=== PATIENT | male | born 1945 | race Caucasian/White ===

== ENCOUNTER → 2016-10-27 | Outpatient (CLI) | payer OTHER ==
[~2016-10-27] MED LIST: ALL300 PO; HYDC25 PO; METR0.754 EX; MULT-164 PO; SIMV20TA2 PO; VERA120T15 PO
== END | disposition home or self-care (01) ==
LOC: C.LABBFT 12:18
PROVIDERS: ATTEND Urology
DX: Z12.5 Encounter for screening for malignant neoplasm of prostate (principal)

== ENCOUNTER → 2016-11-28 | Outpatient (CLI) | payer OTHER ==
[2016-11-28 12:32] LABS: BLOOD UREA NITROGEN 15 mg/dl (7-18); BUN/CREATININE RATIO 15.3 (10-20); CALCIUM 10.2 mg/dl (8.5-10.1); CARBON DIOXIDE 28 mmol/L (21-32); CHLORIDE 104 mmol/L (98-107); CREATININE 0.96 mg/dl (0.60-1.40); GLUCOSE 99 mg/dl (70-99); POTASSIUM 3.8 mmol/L (3.5-5.1); SODIUM 140 mmol/L (136-145); URIC ACID 4.8 mg/dl (2.6-7.2)
[2016-11-28 13:21] LABS: ESTIMATED AVERAGE GLUCOSE 123 mg/dl; HA1C FLAG Normal (Normal)
== END | disposition home or self-care (01) ==
LOC: C.LABBFT 07:36
PROVIDERS: ATTEND Internal Medicine
DX: M10.9 Gout, unspecified (principal); E11.9 Type 2 diabetes mellitus without complications

== ENCOUNTER → 2017-06-09 | Outpatient (CLI) | payer OTHER ==
[2017-06-09 12:38] LABS: BASO % 0.3 %; BASO ABS # 0.02 K/uL (0-0.2); COMPLETE YES; HEMATOCRIT 43.8 % (42-52); IG% 0.2 %; LYMPH % 37.4 %; LYMPH ABS # 2.38 K/uL (1.2-3.4); MEAN CELL VOLUME 94.6 fL (80-100); MEAN CORPUSCULAR HGB CONC 34.9 g/dl (32-36); MEAN PLATELET VOLUME 11.9 fL (7.4-10.4); MONO % 8.2 %; NEUT % 51.9 %; PLATELET COUNT 181 K/uL (130-400); RED BLOOD COUNT 4.63 M/uL (4.7-6.1); WHITE BLOOD COUNT 6.36 K/uL (4.8-10.8)
[2017-06-09 13:21] LABS: ALT/SGPT 39 U/L (12-78); AST/SGOT 26 U/L (15-37); BLOOD UREA NITROGEN 20 mg/dl (7-18); BUN/CREATININE RATIO 19.5 (10-20); CALCIUM 9.2 mg/dl (8.5-10.1); CARBON DIOXIDE 25 mmol/L (21-32); CHLORIDE 107 mmol/L (98-107); CREATININE 1.01 mg/dl (0.60-1.40); GLUCOSE 105 mg/dl (70-99); POTASSIUM 3.7 mmol/L (3.5-5.1); SODIUM 140 mmol/L (136-145)
[2017-06-09 13:22] LABS: RATIO 22.8 mcg/mg (0-30.0)
[2017-06-09 13:24] LABS: ALB/GLOB RATIO 1.3 (0.9-2); ALKALINE PHOSPHATASE 85 U/L (45-117); CHOLESTEROL 137 mg/dl (0-200); CHOLESTEROL/HDL RATIO 2.9; HDL CHOLESTEROL 47 mg/dl; LDL CHOLESTEROL CALCULATED 59 mg/dl; TRIGLYCERIDES 154 mg/dl (0-150); VERY LOW DENSITY LIPOPROT CALC 31 mg/dl
[2017-06-09 13:57] LABS: ESTIMATED AVERAGE GLUCOSE 123 mg/dl; HA1C FLAG Normal (Normal)
== END | disposition home or self-care (01) ==
LOC: C.LABBFT 07:43
PROVIDERS: ATTEND Internal Medicine
DX: E11.9 Type 2 diabetes mellitus without complications (principal); E78.00 Pure hypercholesterolemia, unspecified; I10 Essential (primary) hypertension

== ENCOUNTER → 2017-11-03 | Outpatient (CLI) | payer OTHER | END | disposition home or self-care (01) | LOC: C.LABBFT 13:04 | PROVIDERS: ATTEND Urology | DX: Z12.5 Encounter for screening for malignant neoplasm of prostate (principal) ==

== ENCOUNTER → 2017-11-11 | Outpatient (CLI) | payer OTHER | END | disposition home or self-care (01) | LOC: C.LABSPEC 17:07 | PROVIDERS: ATTEND Urology | DX: R30.0 Dysuria (principal) ==

== ENCOUNTER → 2017-12-22 | Outpatient (CLI) | payer OTHER ==
[2017-12-22 12:48] LABS: BLOOD UREA NITROGEN 23 mg/dl (7-18); CALCIUM 8.9 mg/dl (8.5-10.1); CARBON DIOXIDE 30 mmol/L (21-32); CREATININE 1.02 mg/dl (0.60-1.40); GLUCOSE 105 mg/dl (70-99); POTASSIUM 4.2 mmol/L (3.5-5.1); SODIUM 141 mmol/L (136-145); URIC ACID 4.5 mg/dl (2.6-7.2)
[2017-12-22 12:53] LABS: HEMOGLOBIN A1C 5.7 % (4.5-5.6)
== END | disposition home or self-care (01) ==
LOC: C.LABBFT 07:20
PROVIDERS: ATTEND Internal Medicine
DX: M10.9 Gout, unspecified (principal); I10 Essential (primary) hypertension; E11.9 Type 2 diabetes mellitus without complications

== ENCOUNTER 2023-11-13 14:59 | Observation (INO) ==
[2023-11-13 15:41] LABS: Basophils # (auto) 0.03 K/uL (0.00-0.20); Basophils % (auto) 0.4 %; Eosinophils # (auto) 0.06 K/uL (0.00-0.50); Eosinophils % (auto) 0.8 %; Hematocrit (blood only) 38.8 % (42.0-52.0); Hemoglobin 13.7 g/dl (14.0-18.0); Immature Granulocytes # (auto) 0.02 K/uL (0.01-0.20); Immature Granulocytes % (auto) 0.3 %; Lymphocytes # (auto) 1.98 K/uL (1.20-3.40); Lymphocytes % (auto) 26.8 %; Mean Corpuscular Hemoglobin 33.1 pg (25.0-34.0); Mean Corpuscular Hgb Conc 35.3 g/dL (32.0-36.0); Mean Corpuscular Volume 93.7 fL (80.0-100.0); Mean Platelet Volume 11.6 fL (9.4-12.4); Monocytes # (auto) 0.62 K/uL (0.11-0.59); Monocytes % (auto) 8.4 %; Neutrophils # (auto) 4.68 K/uL (1.40-6.50); Neutrophils % (auto) 63.3 %; Platelet Count 188 K/uL (130-400); RDW Coefficient of Variation 14.1 % (11.5-14.5); RDW Standard Deviation 48.3 fL (36.4-46.3); Red Blood Count 4.14 M/uL (4.70-6.10); White Blood Count 7.39 K/ul (4.8-10.8)
--- NOTE | 2023-11-13 15:51 | XRay Report ---
XR chest 1V not portable HISTORY: Chest pain, nonspecific COMPARISON: Chest 08/06/2011. FINDINGS: No pneumothorax. No pleural effusions. No new focal lung consolidations to suggest pneumoni a. No evidence for pulmonary edema. The heart is top normal in size. This remains unchanged. No acute fractures identified. Degenerative changes within the shoulders. A few small bibasilar linear densit ies favor subsegmental atelectasis or scarring. IMPRESSION: No acute process. ACT 112: Negative or not required by law. Electronically signed by: Roman Lane M.D. 11/13/2023 3:50 PM
[2023-11-13 15:57] LABS: Alanine Aminotransferase 26 U/L (7-52); Albumin Globulin Ratio 1.7 (0.9-2); Albumin Level 4.4 gm/dl (3.4-5.0); Alkaline Phosphatase 74 U/L (34-104); Anion Gap 8 (3-11); Aspartate Aminotransferase 29 U/L (13-39); BUN Creatinine Ratio 28.6 (10-20); Bilirubin,Total 0.9 mg/dl (0.2-1.0); Blood Urea Nitrogen 28 mg/dl (6-23); Calcium 10.2 mg/dl (8.6-10.3); Carbon Dioxide 27 mmol/L (21-32); Chloride 106 mmol/L (98-107); Est GFR (African American) 84.1 ml/min; Est GFR (Non-African American) 72.5 ml/min; Globulin 2.6 gm/dl (2.5-4.0); Glucose 84 mg/dl (70-99(Fasting)); Potassium 3.7 mmol/L (3.5-5.1); Sodium 141 mmol/L (136-145)
[2023-11-13 16:02] LABS: Troponin I High Sensitivity 13.2 pg/ml (0-20)
[2023-11-13 16:08] LABS: Partial Thromboplastin Ratio 0.9; Partial Thromboplastin Time 25 Seconds (21-31); Prothrombin Time 11.2 Seconds (9.0-12.0)
--- NOTE | 2023-11-13 18:39 | Emergency Department Note ---
Impression & Plan Premature atrial complexes, PVCs (premature ventricular contractions), NSVT (nonsustained ventricular tachycardia) ED Provider Note NAME: ATA JUAREZ AGE: 78 SEX: M : 1945 ARRIVES VIA: Walk-In INFORMANT: Patient ED PROVIDER(S): Bimal Porras MD CHIEF COMPLAINT: Possible new A-fib, referred. PLAN: Disposition: Admit MEDICAL DECISION MAKING: The patient is a pleasant 78-year-old gentleman with a past medical history of hypertension, hyperlipidemia, type 2 diabetes, nonalcoholic fatty liver disease, BPH, anxiety/depression who presents to the emergency department via walk-in accompanied by family referred by outpatient preop testing for concern for new onset atrial fibrillation on his EKG today. Patient also reports that he was referred to cardiology with appointment scheduled for next week after outpatient appointment suspected and irregular heart rhythm. Patient reports over the past couple of months feeling dizzy when he bends over but not in any of the context. Otherwise denies any palpitations, chest pain, shortness of breath. In particular he denies any chest pain with exertion. He denies any recent illness including fevers, chills, cough, congestion, GI/ symptoms. Of note, the patient did arrive to emergency department during time of high volume, acuity and prolonged emergency department waiting times. Critical pathways initiated from triage. On my evaluation the patient is well-appearing no acute distress, afebrile with stable vital signs. EKG does not show atrial fibrillation at this time. Chest x-ray is negative for acute cardiopulmonary process per my preliminary independent interpretation. WBC and platelets within normal limits. H/H approximately prior range values. Platelets within normal limits. Chemistry without metabolic acidosis. Electrolytes and LFTs unremarkable. High-sensitivity troponin 13.2, within normal limits. Of note, patient was monitored on telemetry and was noted to have intermittent PVCs and a single episode of 5 consecutive beats, technically nonsustained ventricular tachycardia however the patient was asymptomatic. Given the patient's ectopy with single episode of nonsustained ventricular tachycardia patient and family agree with plan for admission for further assessment. Case was discussed with Dr. Raymond, [facility] hospitalist, who will evaluate the patient for admission. Additionally, EKGs and case reviewed with [facility] cardiology on-call, Dr. Gamble. Appreciate consultation recommendations and agrees that patient's EKG in the emergency room today as well as his EKG on preop testing does not show atrial fibrillation rather premature beats. He will be available for inpatient team consultation. Admitting team was updated. Triage Nursing notes reviewed and agree them. Prior/external medical records reviewed Vital Signs: reviewed Differential diagnosis: Premature contractions, electrolyte abnormality, cardiac dysrhythmia, thyroid dysfunction, pulmonary embolism, infection, gastrointestinal, as well as other pathologies. ER treatment provided: See below. Diagnostics interpreted by me: ECG: Sinus rhythm with PACs, 65 bpm, nonspecific T wave abnormality, no overt ST elevation or depression, QTc 391, QRS 86. Cardiac Monitoring: An order for continuous cardiac monitoring was placed and demonstrated Sinus rhythm with PACs, 65 bpm, intermittent PVCs with single episode of 5 consecutive ventricular beats consistent with nonsustained V. tach vs aberrancy. Laboratory studies: See below Imaging studies: See below Consultation(s): Dr. Raymond, [facility] hospitalist. [facility] cardiology on-call, Dr. Gamble HPI: The patient is a pleasant 78-year-old gentleman with a past medical history of hypertension, hyperlipidemia, type 2 diabetes, nonalcoholic fatty liver disease, BPH, anxiety/depression who presents emergency department via walk-in accompanied by family referred by outpatient preop testing for concern for new onset atrial fibrillation on his EKG today. Patient also reports that he was referred to cardiology with appointment scheduled for next week after outpatient appointment suspected and irregular heart rhythm. Patient reports over the past couple of months feeling dizzy when he bends over but not in any of the context. Otherwise denies any palpitations, chest pain, shortness of breath. In particular he denies any chest pain with exertion. He denies any recent illness including fevers, chills, cough, congestion, GI/ symptoms. ROS: See above HPI for pertinent positives & negatives. A total of 10 systems reviewed and were otherwise negative. VITALS:See Below PHYSICAL EXAMINATION: GENERAL: Awake, alert, well-appearing, in no distress HENT: Normocephalic, atraumatic. Oropharynx with dry mucous membranes and otherwise unremarkable. EYES: Normal conjunctiva. Sclera non-icteric. NECK: Supple. No nuchal rigidity. FROM. No JVD. RESPIRATORY: Clear to auscultation. CARDIAC: Regular rate, normal rhythm. Extremities warm and well perfused. Pulses equal. ABDOMEN: Soft, non-distended. No tenderness to palpation. No rebound or guarding. No masses. MUSCULOSKELETAL: Chest examination reveals no tenderness. The back is symmetrical on inspection without obvious abnormality. There is no CVA tenderness to palpation. No joint edema. LOWER EXTREMITIES: Calves are equal size bilaterally and non-tender. No edema. No discoloration. NEURO: Normal sensorium. No sensory or motor deficits noted. SKIN: No rash or jaundice noted. Bimal Porras MD Past Med/Surg History Medical History [place] (hard of hearing) Chronic cough for past 12-13 yrs/testing done. Something sweet or hot will trigger it. No findings. Denies change to baseline. Osteoarthritis knees and bone spurs. History of kidney stones Apnea, sleep says when lying on back will stop breathing sometimes. No hx sleep study. Anxiety History of colon polyps History of COVID-19 04/28/23 > home test > temp of 100.0, fatigue, all resolved Fatty liver disease, nonalcoholic Prostate nodule hx many years ago ? / hx elevated psa/since then re tested and normal - no known or current problems. Diabetes type 2, controlled Rosacea Gout hx Hypertension controlled, stable per pt Hyperlipidemia Surgical History Hx of right cataract extraction History of left cataract surgery History of tonsillectomy and adenoidectomy History of esophagogastroduodenoscopy (EGD) History of colonoscopy History of tooth extraction Family History Grandmother Family history of diabetes mellitus Mother Family hx of colon cancer Colorectal cancer Brother Myocardial infarction Denies family history of Ovarian cancer Prostate cancer Coronary heart disease Breast cancer Social History Smoking Status: Never smoker Tobacco Type: Cigarettes Age Started Using Tobacco: 18; packs per day: 2; Cigarettes Per Day: QUIT 1972; Second Hand Exposure: No; Do You Dip or Chew Tobacco: No; Hx Alcohol Use: No Hx Substance Use: No Preferred Language: Arabic Communication Ability: Effective Visual Impairment: No Limitations Hearing Ability: Hard of Hearing Revenue Manager Required: No Beliefs That Will Affect Care: None marital status: Current Living Situation: Spouse current occupational status: retired current occupation: retired from [employer] Other Information That Helps Us Care for You: No Feels Safe at Home: Yes Safety Concerns: Feels Safe At This Time Childhood Exposure to Second-Hand Smoke: Yes Diet: regular caffeine: Yes Dental Care, Regularly: No Physical Activity Frequency: Does not Exercise Seatbelt Use: always Sunscreen Use: No Assistive Devices: Denture - Upper, Denture - Lower and Glasses Allergies Allergies Allergy/AdvReac Type Severity Reaction Status Date / Time lisinopril Allergy Unknown cough Verified 11/04/23 08:19 Home Meds Home Medications Medication Instructions Recorded Confirmed multivitamin 1 tab PO QAM 01/24/19 11/13/23 mecobalamin (vitamin B12) 1,000 1,000 mcg sublingual QAM 01/15/23 11/13/23 mcg disintegrating tablet,sublingual allopurinol 300 mg tablet 300 mg PO QAM 05/15/23 11/13/23 buspirone 5 mg tablet 5 mg PO BID 05/15/23 11/13/23 losartan 50 mg-hydrochlorothiazide 1 tab PO QAM 05/15/23 11/13/23 12.5 mg tablet rosuvastatin 10 mg tablet 10 mg PO HS 05/15/23 11/13/23 Previous Rx's Medication Instructions Recorded metformin 500 mg tablet,extended 500 mg PO BID #200 tabs 12/17/22 release 24hr (osmotic) verapamil 180 mg tablet,extended 180 mg PO QAM #100 tabs 01/08/23 release doxycycline hyclate 50 mg capsule 50 mg PO QAM #90 caps 10/06/23 Results & Data (ED) Vital Signs Vital Signs - 24 hr 11/13/23 15:04 11/13/23 17:39 11/13/23 17:40 Temperature 36.3 C L Temperature Source Temporal Artery Scan Pulse Rate 73 61 58 L Pulse Rate [Apical] Pulse Rate from SpO2 Sensor Respiratory Rate 20 17 Respiratory Effort / Characteristics Non-Labored Spontaneous Respiratory Depth Normal Blood Pressure 126/77 Blood Pressure [Right Arm] Blood Pressure Mean 93 Blood Pressure Mean [Right Arm] Pulse Oximetry 97 Oxygen Delivery Method Room Air Sepsis New/Unexplained Change in Mental Status No Sepsis Action Taken by Nursing No Action Required 11/13/23 18:00 11/13/23 18:00 11/13/23 18:30 Temperature Temperature Source Pulse Rate 62 Pulse Rate [Apical] Pulse Rate from SpO2 Sensor Respiratory Rate 18 Respiratory Effort / Characteristics Respiratory Depth Blood Pressure 112/69 132/81 Blood Pressure [Right Arm] Blood Pressure Mean 80 90 Blood Pressure Mean [Right Arm] Pulse Oximetry Oxygen Delivery Method Sepsis New/Unexplained Change in Mental Status Sepsis Action Taken by Nursing 11/13/23 18:30 11/13/23 19:31 11/13/23 19:31 Temperature Temperature Source Pulse Rate 63 Pulse Rate [Apical] Pulse Rate from SpO2 Sensor 82 Respiratory Rate 15 Respiratory Effort / Characteristics Respiratory Depth Blood Pressure 155/77 H Blood Pressure [Right Arm] Blood Pressure Mean 103 Blood Pressure Mean [Right Arm] Pulse Oximetry 95 Oxygen Delivery Method Sepsis New/Unexplained Change in Mental Status Sepsis Action Taken by Nursing 11/13/23 19:32 11/13/23 19:32 11/13/23 19:32 Temperature Temperature Source Pulse Rate Pulse Rate [Apical] 74 Pulse Rate from SpO2 Sensor Respiratory Rate 16 Respiratory Effort / Characteristics Respiratory Depth Blood Pressure Blood Pressure [Right Arm] 155/77 H Blood Pressure Mean Blood Pressure Mean [Right Arm] 103 Pulse Oximetry 97 Oxygen Delivery Method Room Air Room Air Room Air Sepsis New/Unexplained Change in Mental Status Sepsis Action Taken by Nursing 11/13/23 20:00 11/13/23 20:00 11/13/23 20:30 Temperature Temperature Source Pulse Rate 80 75 Pulse Rate [Apical] Pulse Rate from SpO2 Sensor Respiratory Rate 22 21 Respiratory Effort / Characteristics Respiratory Depth Blood Pressure 153/72 H Blood Pressure [Right Arm] Blood Pressure Mean 98 Blood Pressure Mean [Right Arm] Pulse Oximetry Oxygen Delivery Method Sepsis New/Unexplained Change in Mental Status Sepsis Action Taken by Nursing 11/13/23 20:30 Temperature Temperature Source Pulse Rate Pulse Rate [Apical] Pulse Rate from SpO2 Sensor Respiratory Rate Respiratory Effort / Characteristics Respiratory Depth Blood Pressure 156/84 H Blood Pressure [Right Arm] Blood Pressure Mean 118 Blood Pressure Mean [Right Arm] Pulse Oximetry Oxygen Delivery Method Sepsis New/Unexplained Change in Mental Status Sepsis Action Taken by Nursing Laboratory Data Attestation: I reviewed the patient's lab results. 11/13/23 15:20 11/13/23 15:20 Lab Results 11/13/23 Range/Units 15:20 WBC 7.39 (4.8-10.8) K/ul RBC 4.14 L (4.70-6.10) M/uL Hgb 13.7 L (14.0-18.0) g/dl Hct 38.8 L (42.0-52.0) % MCV 93.7 (80.0-100.0) fL MCH 33.1 (25.0-34.0) pg MCHC 35.3 (32.0-36.0) g/dL RDW Std Deviation 48.3 H (36.4-46.3) fL RDW Coeff of [place] 14.1 (11.5-14.5) % Plt Count 188 (130-400) K/uL MPV 11.6 (9.4-12.4) fL Immature Gran % (Auto) 0.3 % Neut % (Auto) 63.3 % Lymph % (Auto) 26.8 % [place] % (Auto) 8.4 % Eos % (Auto) 0.8 % Baso % (Auto) 0.4 % Neut # (Auto) 4.68 (1.40-6.50) K/uL Lymph # (Auto) 1.98 (1.20-3.40) K/uL [place] # (Auto) 0.62 H (0.11-0.59) K/uL Eos # (Auto) 0.06 (0.00-0.50) K/uL Baso # (Auto) 0.03 (0.00-0.20) K/uL Immature Gran # (Auto) 0.02 (0.01-0.20) K/uL PT 11.2 (9.0-12.0) Seconds INR 1.0 (0.9-1.1) APTT 25 (21-31) Seconds PTT Ratio 0.9 Sodium 141 (136-145) mmol/L Potassium 3.7 (3.5-5.1) mmol/L Chloride 106 (98-107) mmol/L Carbon Dioxide 27 (21-32) mmol/L Anion Gap 8 (3-11) BUN 28 H (6-23) mg/dl Creatinine 0.98 (0.6-1.4) mg/dl Est Cr Clr Drug Dosing Not Reportable Est GFR ( Amer) 84.1 ml/min Est GFR (Non-Af Amer) 72.5 ml/min BUN/Creatinine Ratio 28.6 H (10-20) Glucose 84 (70-99(Fasting)) mg/dl Calcium 10.2 (8.6-10.3) mg/dl Magnesium 1.7 (1.7-2.4) mg/dl Total Bilirubin 0.9 (0.2-1.0) mg/dl AST 29 (13-39) U/L ALT 26 (7-52) U/L Alkaline Phosphatase 74 (34-104) U/L Troponin I High Sens 13.2 (0-20) pg/ml Total Protein 7.0 (6.0-8.3) gm/dl Albumin 4.4 (3.4-5.0) gm/dl Globulin 2.6 (2.5-4.0) gm/dl Albumin/Globulin Ratio 1.7 (0.9-2) Administered Medications Buspirone HCl (Buspirone 5 Mg Tab) 5 mg PO BID LUIS MIGUEL Stop: 12/13/23 23:36 Last Admin: 11/14/23 00:44 Dose: 5 mg Documented By: FABRIZIO Enoxaparin Sodium (Enoxaparin Inj 40 Mg/0.4 Ml Syr) 40 mg SQ Q24H LUIS MIGUEL Stop: 12/13/23 20:59 Last Admin: 11/14/23 00:45 Dose: 40 mg Documented By: FABRIZIO Rosuvastatin Calcium (Rosuvastatin Calcium 10 Mg Tab) 10 mg PO HS LUIS MIGUEL Stop: 12/13/23 23:36 Last Admin: 11/14/23 00:44 Dose: 10 mg Documented By: FABRIZIO Discontinued Medications Potassium Chloride (K Benny / Wtr) 10 meq in 100 mls @ 100 mls/hr IV ONE ONE Stop: 11/13/23 21:35 Last Infusion: 11/13/23 23:01 Dose: Infused Documented By: Admin: 11/13/23 21:45 Dose: 100 mls/hr Documented By: CHAU Magnesium Sulfate/Dextrose (Magnesium Sulfate / D5w) 1 gm in 100 mls @ 50 mls/hr IV ONE ONE Stop: 11/14/23 00:11 Last Infusion: 11/14/23 01:28 Dose: Infused Documented By: Admin: 11/13/23 22:21 Dose: 50 mls/hr Documented By: CHAU Imaging Data Radiologist's Impression: Chest X-Ray 11/13/23 15:06 XR chest 1V not portable HISTORY: Chest pain, nonspecific COMPARISON: Chest 08/06/2011. FINDINGS: No pneumothorax. No pleural effusions. No new focal lung consolidations to suggest pneumonia. No evidence for pulmonary edema. The heart is top normal in size. This remains unchanged. No acute fractures identified. Degenerative changes within the shoulders. A few small bibasilar linear densities favor subsegmental atelectasis or scarring. IMPRESSION: No acute process. ACT 112: Negative or not required by law. Electronically signed by: Roman Lane M.D. 11/13/2023 3:50 PM Discharge Plan Visit Data Chief Complaint: Arrhythmia/Palpitations Stated Complaint: NEW ONSET AFIB ED Provider: Bimal Porras Discharge Problem: Premature atrial complexes, PVCs (premature ventricular contractions), NSVT (nonsustained ventricular tachycardia) Patient Disposition: Admitted As Inpatient Discharge Instructions Interventions: ED Discharge Assessment Last Done: 11/13/23 23:38
--- NOTE | 2023-11-13 20:52 | History & Physical Report ---
Date of Service November 13, 2023 Assessment & Plan (1) NSVT (nonsustained ventricular tachycardia): (2) PVCs (premature ventricular contractions): (3) Premature atrial complexes: (4) Depression with anxiety: (5) Enlarged prostate with lower urinary tract symptoms (LUTS): (6) Osteoarthritis of both knees: (7) Hypertension: (8) Hyperlipidemia: (9) Diabetes type 2, controlled: (10) Hypomagnesemia: (11) Hypokalemia: (12) History of atrial fibrillation: Plan PACs/PVCs/history of atrial fibrillation/hypertension/5 beat run NSVT- The patient will be admitted to telemetry for serial cardiac enzymes, serial EKG's, cardiac rhythm monitoring and a 2-D echocardiogram with Dopplers. Patient has been asymptomatic, and EKGs reportedly in outpatient setting were noted to have atrial fibrillation, and patient has a pending outpatient appointment with [facility] cardiology on 11/23/2023 Optimize potassium and magnesium Continue verapamil extended release 180 mg every morning Hold losartan/HCTZ for now, until electrolytes optimized Consult to cardiology Dr. Conte Electrolyte disturbances- Relative hypokalemia of 3.7, to give KCl 10 mEq IV rider x 1 Hypomagnesemia of 1.7, to give mag sulfate 1 g IV x 1 Repeat laboratories in the a.m. Diabetes mellitus- Hold metformin Place on Accu-Cheks with NovoLog SSI Anxiety- Continue buspirone 5 mg p.o. twice daily History of Present Illness Chief Complaint: The patient presents to the emergency department as a referral from preoperative evaluation by anesthesiology, due to concerns regarding atrial fibrillation noted on EKG there, and reportedly at presurgical [facility] Ortho visit. The patient was noted to have a preoperative cardiology evaluation appointment with [facility] cardiology on 11/23/2023 Primary Care Provider: Taras Rivera MD The patient is an 78-year-old male with a past medical history including microalbuminuria, depression with anxiety, allergic rhinitis, BPH with LUTS, chronic prostatitis, osteoarthritis of knees bilaterally, hyperlipidemia, hypertension, gout, diabetes mellitus type 2 and NAFLD. He reports that he has been undergoing routine preoperative assessment for left total knee arthroplasty to be done in the near future, when he was found to have atrial fibrillation at [facility] Ortho visit, and was referred to [facility] cardiology for appointment on 11/23/2023. Patient had been seen by anesthesiology on 11/12, was found to be in atrial fibrillation at that time, and was referred to the ED for further assessment. Patient denies any chest pain, shortness of breath, dyspnea on exertion, palpitations, lightheadedness or dizziness. Allergies Allergy/AdvReac Type Severity Reaction Status Date / Time lisinopril Allergy Unknown cough Verified 11/04/23 08:19 Home Medications Medication Instructions Recorded Confirmed Type multivitamin 1 tab PO QAM 01/24/19 11/13/23 History metformin 500 mg tablet,extended 500 mg PO BID #200 tabs 12/17/22 11/13/23 Rx release 24hr (osmotic) verapamil 180 mg tablet,extended 180 mg PO QAM #100 tabs 01/08/23 11/13/23 Rx release mecobalamin (vitamin B12) 1,000 1,000 mcg sublingual QAM 01/15/23 11/13/23 History mcg disintegrating tablet,sublingual allopurinol 300 mg tablet 300 mg PO QAM 05/15/23 11/13/23 History buspirone 5 mg tablet 5 mg PO BID 05/15/23 11/13/23 History losartan 50 mg-hydrochlorothiazide 1 tab PO QAM 05/15/23 11/13/23 History 12.5 mg tablet rosuvastatin 10 mg tablet 10 mg PO HS 05/15/23 11/13/23 History doxycycline hyclate 50 mg capsule 50 mg PO QAM #90 caps 10/06/23 11/13/23 Rx Past Med/Surg History Medical History (Updated 11/14/23 @ 03:32 by Paulo Raymond MD) History of atrial fibrillation Osteoarthritis of both knees [place] (hard of hearing) Chronic cough for past 12-13 yrs/testing done. Something sweet or hot will trigger it. No findings. Denies change to baseline. Osteoarthritis knees and bone spurs. History of kidney stones Apnea, sleep says when lying on back will stop breathing sometimes. No hx sleep study. Anxiety History of colon polyps History of COVID-19 04/28/23 > home test > temp of 100.0, fatigue, all resolved Fatty liver disease, nonalcoholic Prostate nodule hx many years ago ? / hx elevated psa/since then re tested and normal - no known or current problems. Diabetes type 2, controlled Rosacea Gout hx Hypertension controlled, stable per pt Hyperlipidemia Surgical History Hx of right cataract extraction History of left cataract surgery History of tonsillectomy and adenoidectomy History of esophagogastroduodenoscopy (EGD) History of colonoscopy History of tooth extraction Family History Grandmother Family history of diabetes mellitus Mother Family hx of colon cancer Colorectal cancer Brother Myocardial infarction Denies family history of Ovarian cancer Prostate cancer Coronary heart disease Breast cancer Social History (Updated 04/21/23 @ 10:19 by Nicole Waller LPN) Smoking Status: Never smoker Tobacco Type: Cigarettes Age Started Using Tobacco: 18; packs per day: 2; Cigarettes Per Day: QUIT 1972; Second Hand Exposure: No; Do You Dip or Chew Tobacco: No; Hx Alcohol Use: No Hx Substance Use: No Preferred Language: [place] Communication Ability: Effective Visual Impairment: No Limitations Hearing Ability: Hard of Hearing 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 Beliefs That Will Affect Care: None marital status: Current Living Situation: Spouse current occupational status: retired current occupation: retired from [employer] Other Information That Helps Us Care for You: No Feels Safe at Home: Yes Safety Concerns: Feels Safe At This Time Childhood Exposure to Second-Hand Smoke: Yes Diet: regular caffeine: Yes Dental Care, Regularly: No Physical Activity Frequency: Does not Exercise Seatbelt Use: always Sunscreen Use: No Assistive Devices: Denture - Upper, Denture - Lower and Glasses Review of Systems Review of Systems: The patient denies chest pain, palpitations, shortness of breath, dyspnea on exertion, cough, lower extremity swelling, sore throat, fevers, chills, sweats, weight change, fatigue, nausea, vomiting, diarrhea , constipation, abdominal pain, pelvic pain, blood in urine or stool, dysuria, urinary frequency or urgency, lightheadedness, dizziness, headache, memory loss, loss of consciousness, rash, abnormal bruising or bleeding, imbalance, focal or generalized weakness, numbness or tingling in arms or legs, generalized arthralgias or myalgias, back or neck pain, or night sweats. The review of systems is otherwise negative other than for that already noted above, and at least 10 systems have been reviewed. Physical Exam Physical Exam: The patient is awake, alert and oriented 3, well developed and well nourished, normocephalic and atraumatic, lying in bed and in no acute distress. HEENT--PERRL, EOMI, mucous membranes and oropharynx normal. Neck--supple. No JVD. No bruits. Thyroid normal, trachea midline, no adenopathy. Heart--variable rate and rhythm, with frequent PACs/PVCs versus A-fib. No murmurs, rubs or gallops. Lungs--clear bilaterally, no respiratory distress, no accessory muscle use. Abdomen--normal bowel sounds and soft. Nontender. Nondistended, no hernias or masses, no organomegaly. Extremities--No edema. Dermatologic--normal skin turgor, normal color, no abnormal lymph nodes, no rash. Neurologic--cranial nerves II through XII grossly intact. Rheumatologic--limited lower extremity exam due to knee pain Psychiatric--normal affect. Results & Data Results & Data Vital Signs (Past 12 Hours) Vital Signs Temp Pulse Pulse Resp BP BP Pulse Ox 11/13/23 19:32 11/13/23 19:32 74 16 155/77 H 97 11/13/23 19:32 11/13/23 17:40 58 L 11/13/23 15:04 36.3 C L 73 20 126/77 97 O2 Del Method 11/13/23 19:32 Room Air 11/13/23 19:32 Room Air 11/13/23 19:32 Room Air 11/13/23 17:40 11/13/23 15:04 Room Air Laboratory Results Laboratory Results WBC 7.39 K/ul (4.8-10.8) 11/13/23 15:20 RBC 4.14 M/uL (4.70-6.10) L 11/13/23 15:20 Hgb 13.7 g/dl (14.0-18.0) L 11/13/23 15:20 Hct 38.8 % (42.0-52.0) L 11/13/23 15:20 MCV 93.7 fL (80.0-100.0) 11/13/23 15:20 MCH 33.1 pg (25.0-34.0) 11/13/23 15:20 MCHC 35.3 g/dL (32.0-36.0) 11/13/23 15:20 RDW Std Deviation 48.3 fL (36.4-46.3) H 11/13/23 15:20 RDW Coeff of [place] 14.1 % (11.5-14.5) 11/13/23 15:20 Plt Count 188 K/uL (130-400) 11/13/23 15:20 MPV 11.6 fL (9.4-12.4) 11/13/23 15:20 Immature Gran % (Auto) 0.3 % 11/13/23 15:20 Neut % (Auto) 63.3 % 11/13/23 15:20 Lymph % (Auto) 26.8 % 11/13/23 15:20 [place] % (Auto) 8.4 % 11/13/23 15:20 Eos % (Auto) 0.8 % 11/13/23 15:20 Baso % (Auto) 0.4 % 11/13/23 15:20 Neut # (Auto) 4.68 K/uL (1.40-6.50) 11/13/23 15:20 Lymph # (Auto) 1.98 K/uL (1.20-3.40) 11/13/23 15:20 [place] # (Auto) 0.62 K/uL (0.11-0.59) H 11/13/23 15:20 Eos # (Auto) 0.06 K/uL (0.00-0.50) 11/13/23 15:20 Baso # (Auto) 0.03 K/uL (0.00-0.20) 11/13/23 15:20 Immature Gran # (Auto) 0.02 K/uL (0.01-0.20) 11/13/23 15:20 PT 11.2 Seconds (9.0-12.0) 11/13/23 15:20 INR 1.0 (0.9-1.1) 11/13/23 15:20 APTT 25 Seconds (21-31) 11/13/23 15:20 PTT Ratio 0.9 11/13/23 15:20 Sodium 141 mmol/L (136-145) 11/13/23 15:20 Potassium 3.7 mmol/L (3.5-5.1) 11/13/23 15:20 Chloride 106 mmol/L (98-107) 11/13/23 15:20 Carbon Dioxide 27 mmol/L (21-32) 11/13/23 15:20 Anion Gap 8 (3-11) 11/13/23 15:20 BUN 28 mg/dl (6-23) H 11/13/23 15:20 Creatinine 0.98 mg/dl (0.6-1.4) 11/13/23 15:20 Est Cr Clr Drug Dosing Not Reportable 11/13/23 15:20 Est GFR ( Amer) 84.1 ml/min 11/13/23 15:20 Est GFR (Non-Af Amer) 72.5 ml/min 11/13/23 15:20 BUN/Creatinine Ratio 28.6 (10-20) H 11/13/23 15:20 Glucose 84 mg/dl (70-99(Fasting)) 11/13/23 15:20 Calcium 10.2 mg/dl (8.6-10.3) 11/13/23 15:20 Magnesium 1.7 mg/dl (1.7-2.4) 11/13/23 15:20 Total Bilirubin 0.9 mg/dl (0.2-1.0) 11/13/23 15:20 AST 29 U/L (13-39) 11/13/23 15:20 ALT 26 U/L (7-52) 11/13/23 15:20 Alkaline Phosphatase 74 U/L (34-104) 11/13/23 15:20 Troponin I High Sens 13.2 pg/ml (0-20) 11/13/23 15:20 Total Protein 7.0 gm/dl (6.0-8.3) 11/13/23 15:20 Albumin 4.4 gm/dl (3.4-5.0) 11/13/23 15:20 Globulin 2.6 gm/dl (2.5-4.0) 11/13/23 15:20 Albumin/Globulin Ratio 1.7 (0.9-2) 11/13/23 15:20 Impressions Chest X-Ray 11/13/23 15:06 XR chest 1V not portable HISTORY: Chest pain, nonspecific COMPARISON: Chest 08/06/2011. FINDINGS: No pneumothorax. No pleural effusions. No new focal lung consolidations to suggest pneumonia. No evidence for pulmonary edema. The heart is top normal in size. This remains unchanged. No acute fractures identified. Degenerative changes within the shoulders. A few small bibasilar linear densities favor subsegmental atelectasis or scarring. IMPRESSION: No acute process. ACT 112: Negative or not required by law. Electronically signed by: Roman Lane M.D. 11/13/2023 3:50 PM Code Status & VTE Plan Code Status Full code VTE Prophylaxis Plan VTE Prophylaxis will be ordered: Yes PG Care Time/CCT Total # of Minutes Spent Total Time Spent with Patient: Total time spent is greater than 50% in coordination of care (as documented) at patient's floor/unit and/or counseling patient: Coding Level of Care Code 74088 INT INP/OBS CARE 3/75MIN Diagnoses NSVT (nonsustained ventricular tachycardia) I47.29 PVCs (premature ventricular contractions) I49.3 Premature atrial complexes I49.1 Depression with anxiety F41.8 Enlarged prostate with lower urinary tract symptoms (LUTS) N40.1 Osteoarthritis of both knees M17.0 Hypertension I10 Hyperlipidemia E78.5 Diabetes type 2, controlled E11.9 Hypomagnesemia E83.42 Hypokalemia E87.6 History of atrial fibrillation Z86.79
[2023-11-13 21:11] LABS: Magnesium 1.7 mg/dl (1.7-2.4)
[2023-11-13] MEDS: POTASSIUM CHLORIDE / WTR 10 MEQ/100 ML PLCT IV ONE (21:45)
[2023-11-13] MEDS: MAGNESIUM SULFATE / D5W 1 GM/100 ML BAG IV ONE (22:21)
[2023-11-13] MEDS ORDERED: ONDANSETRON INJ 2 MG/ML 2 ML VIAL IV PRN (23:37)
[2023-11-13] MEDS ORDERED: ACETAMINOPHEN 325 MG TAB PO PRN (23:37)
[2023-11-14] MEDS: busPIRone 5 MG TAB PO SCH (00:44)
[2023-11-14] MEDS: ROSUVASTATIN CALCIUM 10 MG TAB PO SCH (00:44)
[2023-11-14] MEDS: ENOXAPARIN INJ 40 MG/0.4 ML SYR SQ SCH (00:45)
[2023-11-14 03:31] LABS: Basophils # (auto) 0.03 K/uL (0.00-0.20); Basophils % (auto) 0.4 %; Eosinophils # (auto) 0.16 K/uL (0.00-0.50); Eosinophils % (auto) 2.2 %; Hematocrit (blood only) 36.5 % (42.0-52.0); Hemoglobin 12.2 g/dl (14.0-18.0); Immature Granulocytes # (auto) 0.01 K/uL (0.01-0.20); Immature Granulocytes % (auto) 0.1 %; Lymphocytes # (auto) 2.49 K/uL (1.20-3.40); Lymphocytes % (auto) 33.7 %; Mean Corpuscular Hemoglobin 32.1 pg (25.0-34.0); Mean Corpuscular Hgb Conc 33.4 g/dL (32.0-36.0); Mean Corpuscular Volume 96.1 fL (80.0-100.0); Mean Platelet Volume 11.5 fL (9.4-12.4); Monocytes # (auto) 0.83 K/uL (0.11-0.59); Monocytes % (auto) 11.2 %; Neutrophils # (auto) 3.87 K/uL (1.40-6.50); Neutrophils % (auto) 52.4 %; Platelet Count 165 K/uL (130-400); RDW Coefficient of Variation 14.2 % (11.5-14.5); RDW Standard Deviation 49.8 fL (36.4-46.3); White Blood Count 7.39 K/ul (4.8-10.8)
[2023-11-14 03:38] LABS: Albumin Level 3.9 gm/dl (3.4-5.0); BUN Creatinine Ratio 25.5 (10-20); Calcium 9.5 mg/dl (8.6-10.3); Est GFR (African American) 76.4 ml/min; Magnesium 1.9 mg/dl (1.7-2.4); Potassium 3.9 mmol/L (3.5-5.1)
[2023-11-14] MEDS: VERAPAMIL HCL 180 MG TABCR PO SCH (08:23)
[2023-11-14] MEDS: DOXYCYCLINE HYCLATE 50 MG CAP PO SCH (08:23)
[2023-11-14] MEDS: allopurinoL 300 MG TAB PO SCH (08:23)
[2023-11-14] MEDS: MULTIVITAMIN TAB PO SCH (08:23)
[2023-11-14] MEDS: CYANOCOBALAMIN (B-12) 500 MCG TABLET PO SCH (08:23)
[2023-11-14] MEDS ORDERED: LOSARTAN/HCTZ 50/12.5MG TAB PO SCH (09:00)
--- NOTE | 2023-11-14 09:54 | Hospitalist Progress Note ---
Date of Service November 14, 2023 Assessment & Plan (1) NSVT (nonsustained ventricular tachycardia): (2) PVCs (premature ventricular contractions): (3) Premature atrial complexes: (4) Depression with anxiety: (5) Enlarged prostate with lower urinary tract symptoms (LUTS): (6) Osteoarthritis of both knees: (7) Hypertension: (8) Hyperlipidemia: (9) Diabetes type 2, controlled: (10) Hypomagnesemia: (11) Hypokalemia: (12) History of atrial fibrillation: Plan PACs/PVCs/history of atrial fibrillation/hypertension/5 beat run NSVT- Patient has been asymptomatic, and EKGs reportedly in outpatient setting were noted to have atrial fibrillation, and patient has a pending outpatient appointment with [facility] cardiology on 11/23/2023 2D echo have been requested, result pending Continue verapamil extended release 180 mg every morning Hold losartan/HCTZ for now, until electrolytes optimized Consult to cardiology Dr. Conte Electrolyte disturbances- Hypokalemia: Potassium repleted Hypomagnesemia: Magnesium repleted Repeat laboratories in the a.m. Diabetes mellitus- Hold metformin Place on Accu-Cheks with NovoLog SSI Anxiety- Continue buspirone 5 mg p.o. twice daily Admission and Anticipated Discharge Date Admission Date: November 13, 2023 Subjective Patient seen and examined today, denies palpitations or chest pain Review of Systems Review of Systems: All systems reviewed are negative, apart from the ones contained in the history. Physical Exam Physical Exam: The patient is awake, alert and oriented 3, well developed and well nourished, normocephalic and atraumatic, lying in bed and in no acute distress. HEENT--PERRL, EOMI, mucous membranes and oropharynx mildly dry Neck--supple. No JVD. No bruits. Thyroid normal, trachea midline, no maria dolores nopathy. Heart--normal S1 and S2. No murmurs, rubs or gallops. Lungs--clear bilaterally, no respiratory distress, no accessory muscle use. Abdomen--normal bowel sounds and soft. Extremities--no cyanosis or clubbing. No edema. Dermatologic--normal skin turgor, normal color, no abnormal lymph nodes, no rash. Neurologic--cranial nerves II through XII grossly intact. Rheumatologic--normal range of motion. Psychiatric--normal affect. Results & Data Results & Data Vital Signs (Past 12 Hours) Vital Signs Pulse Resp BP Pulse Ox 11/14/23 07:22 65 11/14/23 05:00 59 L 14 134/84 97 11/14/23 01:30 62 20 123/78 93 11/13/23 23:30 63 16 116/69 95 11/13/23 22:00 79 PG Care Time/CCT Total # of Minutes Spent Total Time Spent with Patient: Total time spent is greater than 50% in coordination of care (as documented) at patient's floor/unit and/or counseling patient: Coding Level of Care Code 31840 SUB INP/OBS CARE 2/35MIN Diagnoses NSVT (nonsustained ventricular tachycardia) I47.29 PVCs (premature ventricular contractions) I49.3 Premature atrial complexes I49.1 Depression with anxiety F41.8 Enlarged prostate with lower urinary tract symptoms (LUTS) N40.1 Osteoarthritis of both knees M17.0 Hypertension I10 Hyperlipidemia E78.5 Diabetes type 2, controlled E11.9 Hypomagnesemia E83.42 Hypokalemia E87.6 History of atrial fibrillation Z86.79 Time Spent (min) 35
--- NOTE | 2023-11-14 10:34 | Cardiology Consultation ---
Date of Consultation November 14, 2023 Assessment & Plan (1) Irregular cardiac rhythm: (2) NSVT (nonsustained ventricular tachycardia): Plan 1. Irregular rhythm: On presentation his exam and electrocardiogram does show an irregular rhythm however it is due to premature atrial and premature ventricular beats not to atrial fibrillation. As far as I know there is no evidence that he has atrial fibrillation. He is irregular rate on exam could have been felt to be atrial fibrillation since and electrocardiogram was not done. Unless we identify atrial fibrillation I would not pursue further treatment or evaluation of this particular rhythm. 2. Nonsustained ventricular tachycardia: We do need an echocardiogram to look the left ventricular function, in the absence of left ventricular dysfunction NSVT is generally not dangerous although does sometimes need to be treated. 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 It is not a typical RVOT origin in this one example. If his left ventricular function is normal I would not alter his current treatment, he is on verapamil which he thinks is for blood pressure but perhaps it was used because of his arrhythmia as well. If we feel we need to treat his arrhythmia (in the setting of normal left ventricular function) we could consider antiarrhythmic therapy. If his left ventricular function is reduced we may have to evaluate him further for that. If his echocardiogram shows normal left ventricular function I would recommend discharging him on his current medical regimen. History of Present Illness Reason for Consultation: Irregular heart rate, NSVT Attending Physician: Danyelle Olivo MD History of Present Illness This is an 78-year-old male with a history of hypertension, hyperlipidemia, diabetes and liver disease who presented to his outpatient preoperative testing and was referred to the emergency room for possible atrial fibrillation. It sounds as though this was done based on auscultation of his heart, there is no outpatient electrocardiographic recording and the patient tells me he did not have one until he came into the emergency room. He reports having rare episodes of dizziness but noted to be postural not at other times. In the emergency room he was not in atrial fibrillation, however he was noted to have PVCs and nonsustained ventricular tachycardia. These were asymptomatic. He was therefore admitted for evaluation. Of note he is on verapamil for hypertension he tells me. This has been continued. In the emergency room his electrocardiogram showed sinus rhythm with premature atrial and premature ventricular beats which may explain the irregularity thought to be atrial fibrillation on exam, although I do not have an outpatient recent electrocardiogram. Laboratory studies here were generally unremarkable and a chest x-ray did not show any significant abnormality. An echocardiogram was done and is pending. As an outpatient he is on verapamil and losartan for hypertension and rosuvastatin for hypercholesterolemia. I discussed his symptoms with him with his family present. Apparently he has been feeling very well, this observation was for routine preoperative evaluation and he has not had difficulty with exertion, exertional chest discomfort or any hemodynamic symptoms other than the occasional lightheadedness which sounds orthostatic. He has never had presyncope or syncope. Allergies Allergy/AdvReac Type Severity Reaction Status Date / Time lisinopril Allergy Unknown cough Verified 11/04/23 08:19 Home Medications Medication Instructions Recorded Confirmed Type multivitamin 1 tab PO QAM 01/24/19 11/13/23 History metformin 500 mg tablet,extended 500 mg PO BID #200 tabs 12/17/22 11/13/23 Rx release 24hr (osmotic) verapamil 180 mg tablet,extended 180 mg PO QAM #100 tabs 01/08/23 11/13/23 Rx release mecobalamin (vitamin B12) 1,000 1,000 mcg sublingual QAM 01/15/23 11/13/23 History mcg disintegrating tablet,sublingual allopurinol 300 mg tablet 300 mg PO QAM 05/15/23 11/13/23 History buspirone 5 mg tablet 5 mg PO BID 05/15/23 11/13/23 History losartan 50 mg-hydrochlorothiazide 1 tab PO QAM 05/15/23 11/13/23 History 12.5 mg tablet rosuvastatin 10 mg tablet 10 mg PO HS 05/15/23 11/13/23 History doxycycline hyclate 50 mg capsule 50 mg PO QAM #90 caps 10/06/23 11/13/23 Rx Patient History Medical History (Updated 11/14/23 @ 10:33 by Sd Conte MD) History of atrial fibrillation Osteoarthritis of both knees [place] (hard of hearing) Chronic cough for past 12-13 yrs/testing done. Something sweet or hot will trigger it. No findings. Denies change to baseline. Osteoarthritis knees and bone spurs. History of kidney stones Apnea, sleep says when lying on back will stop breathing sometimes. No hx sleep study. Anxiety History of colon polyps History of COVID-19 04/28/23 > home test > temp of 100.0, fatigue, all resolved Fatty liver disease, nonalcoholic Prostate nodule hx many years ago ? / hx elevated psa/since then re tested and normal - no known or current problems. Diabetes type 2, controlled Rosacea Gout hx Hypertension controlled, stable per pt Hyperlipidemia Surgical History Hx of right cataract extraction History of left cataract surgery History of tonsillectomy and adenoidectomy History of esophagogastroduodenoscopy (EGD) History of colonoscopy History of tooth extraction Family History Grandmother Family history of diabetes mellitus Mother Family hx of colon cancer Colorectal cancer Brother Myocardial infarction Denies family history of Ovarian cancer Prostate cancer Coronary heart disease Breast cancer Social History Smoking Status: Never smoker Tobacco Type: Cigarettes Age Started Using Tobacco: 18; packs per day: 2; Cigarettes Per Day: QUIT 1972; Second Hand Exposure: No; Do You Dip or Chew Tobacco: No; Hx Alcohol Use: No Hx Substance Use: No Preferred Language: Kyrgyz Communication Ability: Effective Visual Impairment: No Limitations Hearing Ability: Hard of Hearing Digital Manager Required: No Beliefs That Will Affect Care: None marital status: Current Living Situation: Spouse current occupational status: retired current occupation: retired from [employer] Other Information That Helps Us Care for You: No Feels Safe at Home: Yes Safety Concerns: Feels Safe At This Time Childhood Exposure to Second-Hand Smoke: Yes Diet: regular caffeine: Yes Dental Care, Regularly: No Physical Activity Frequency: Does not Exercise Seatbelt Use: always Sunscreen Use: No Assistive Devices: Denture - Upper, Denture - Lower and Glasses Review of Systems Review of Systems: All systems reviewed & are unremarkable except as noted in HPI & below Physical Exam Physical Exam: Constitutional: Alert, cooperative and in no distress. HEENT: Unremarkable Neck: No jugular venous distention, carotid pulses are irregular but otherwise normal and equal bilaterally without bruits. Pulmonary: Clear to auscultation bilaterally. Cardiac: Irregular rhythm with no murmur, gallop or rub. Abdomen: Soft, nontender with normal bowel sounds. Extremities: No edema. Distal pulses intact. Neurologic: No focal findings. Gait is steady. Skin: No rash, ecchymoses or petechiae. Results & Data Vital Signs (Past 12 Hours) Vital Signs Temp Pulse Pulse Resp BP BP Pulse Ox 11/14/23 10:16 36.7 C 70 17 115/66 99 11/14/23 07:22 65 11/14/23 05:00 59 L 14 134/84 97 11/14/23 01:30 62 20 123/78 93 11/13/23 23:30 63 16 116/69 95 O2 Del Method 11/14/23 10:16 Room Air 11/14/23 07:22 11/14/23 05:00 11/14/23 01:30 11/13/23 23:30 Laboratory Results Cardiac Enzymes 11/13/23 Range/Units 15:20 AST 29 (13-39) U/L Troponin I High Sens 13.2 (0-20) pg/ml Coagulation 11/13/23 Range/Units 15:20 PT 11.2 (9.0-12.0) Seconds APTT 25 (21-31) Seconds CBC 11/13/23 11/14/23 Range/Units 15:20 03:06 WBC 7.39 7.39 (4.8-10.8) K/ul RBC 4.14 L 3.80 L (4.70-6.10) M/uL Hgb 13.7 L 12.2 L (14.0-18.0) g/dl Hct 38.8 L 36.5 L (42.0-52.0) % Plt Count 188 165 (130-400) K/uL Neut # (Auto) 4.68 3.87 (1.40-6.50) K/uL Lymph # (Auto) 1.98 2.49 (1.20-3.40) K/uL [place] # (Auto) 0.62 H 0.83 H (0.11-0.59) K/uL Eos # (Auto) 0.06 0.16 (0.00-0.50) K/uL Baso # (Auto) 0.03 0.03 (0.00-0.20) K/uL Comprehensive Metabolic Panel 11/13/23 11/14/23 Range/Units 15:20 03:06 Sodium 141 139 (136-145) mmol/L Potassium 3.7 3.9 (3.5-5.1) mmol/L Chloride 106 106 (98-107) mmol/L Carbon Dioxide 27 27 (21-32) mmol/L BUN 28 H 27 H (6-23) mg/dl Creatinine 0.98 1.06 (0.6-1.4) mg/dl Glucose 84 121 H (70-99(Fasting)) mg/dl Calcium 10.2 9.5 (8.6-10.3) mg/dl AST 29 (13-39) U/L ALT 26 (7-52) U/L Alkaline Phosphatase 74 (34-104) U/L Total Protein 7.0 (6.0-8.3) gm/dl Albumin 4.4 3.9 (3.4-5.0) gm/dl Intake and Output 11/13/23 11/14/23 11/14/23 22:59 06:59 14:59 Intake Total 200 / 200 120 / 120 Balance 200 / 200 120 / 120 Intake: IV 200 / 200 Magnesium Sulfate / D5w 1 gm In 100 / 100 100 ml @ 50 mls/hr IV ONE ONE Rx#:[id number] Potassium Chloride / Wtr 10 meq 100 / 100 In 100 ml @ 100 mls/hr IV ONE ONE Rx#:[id number] Oral 120 / 120 Other: # Unmeasured Voids 1 Weight 75 kg 75 kg Weight Measurement Method Built in Bedscale Chair Scale Diagnostic Findings Telemetry: Irregular rhythm which is sinus rhythm with frequent premature atrial beats and less frequent premature ventricular beats. No atrial fibrillation identified. PG Care Time/CCT Total # of Minutes Spent Total Time Spent with Patient: Total time spent is greater than 50% in coordination of care (as documented) at patient's floor/unit and/or counseling patient: Coding Level of Care Code 11939 INT INP/OBS CARE 3/75MIN Diagnoses Irregular cardiac rhythm I49.9 NSVT (nonsustained ventricular tachycardia) I47.29
--- NOTE | 2023-11-14 15:04 | XCELERA ---
[id number]
--- NOTE | 2023-11-14 15:44 | Discharge Summary ---
Date of Service November 14, 2023 Admission HPI Per Admitting Provider The patient is an 78-year-old male with a past medical history including microalbuminuria, depression with anxiety, allergic rhinitis, BPH with LUTS, chronic prostatitis, osteoarthritis of knees bilaterally, hyperlipidemia, hypertension, gout, diabetes mellitus type 2 and NAFLD. He reports that he has been undergoing routine preoperative assessment for left total knee arthroplasty to be done in the near future, when he was found to have atrial fibrillation at [facility] Ortho visit, and was referred to [facility] cardiology for appointment on 11/23/2023. Patient had been seen by anesthesiology on 11/12, was found to be in atrial fibrillation at that time, and was referred to the ED for further assessment. Patient denies any chest pain, shortness of breath, dyspnea on exertion, palpitations, lightheadedness or dizziness. Principal Diagnosis PVCs, PACs Discharge Exam The patient is awake, alert and oriented 3, well developed and well nourished, normocephalic and atraumatic, lying in bed and in no acute distress. HEENT--PERRL, EOMI, mucous membranes and oropharynx mildly dry Neck--supple. No JVD. No bruits. Thyroid normal, trachea midline, no adenopathy. Heart--normal S1 and S2. No murmurs, rubs or gallops. Lungs--clear bilaterally, no respiratory distress, no accessory muscle use. Abdomen--normal bowel sounds and soft. Extremities--no cyanosis or clubbing. No edema. Dermatologic--normal skin turgor, normal color, no abnormal lymph nodes, no rash. Neurologic--cranial nerves II through XII grossly intact. Rheumatologic--normal range of motion. Psychiatric--normal affect. Discharge Data Allergies Allergy/AdvReac Type Severity Reaction Status Date / Time lisinopril Allergy Unknown cough Verified 11/04/23 08:19 Consultations 11/13/23 18:52 ED Decision to Admit Stat 11/13/23 23:37 Consult Cardiology Routine Hospital Course (1) NSVT (nonsustained ventricular tachycardia): (2) PVCs (premature ventricular contractions): (3) Premature atrial complexes: (4) Depression with anxiety: (5) Enlarged prostate with lower urinary tract symptoms (LUTS): (6) Osteoarthritis of both knees: (7) Hypertension: (8) Hyperlipidemia: (9) Diabetes type 2, controlled: (10) Hypomagnesemia: (11) Hypokalemia: (12) History of atrial fibrillation: Plan PACs/PVCs/history of atrial fibrillation/hypertension/5 beat run NSVT- Patient has been asymptomatic, and EKGs reportedly in outpatient setting were noted to have atrial fibrillation, and patient has a pending outpatient appointment with [facility] cardiology on 11/23/2023 2D echo have been requested, result pending Continue verapamil extended release 180 mg every morning Hold losartan/HCTZ for now, until electrolytes optimized Patient has been evaluated by youth career specialist who determined there was no need to make any changes to his current medications. Patient will discharge today to continue his home medicine of verapamil. Electrolyte disturbances- Hypokalemia: Potassium repleted Hypomagnesemia: Magnesium repleted Repeat laboratories in the a.m. Diabetes mellitus- Hold metformin Place on Accu-Cheks with NovoLog SSI Anxiety- Continue buspirone 5 mg p.o. twice daily Total Time Total Time Spent Total Time Spent (In Minutes): 35 Discharge Plan Discharge Items Patient Disposition: Home - Self-Care Reason For Visit: PAC'S, NSVT Discharge Diagnosis: PACs, PVCs Activity: Resume your previous activity Non-emergency contact: Primary Care Provider Call non-emergency contact if: you have any medication questions Follow-up/Referrals: Taras Rivera MD [Primary Care Provider] - Diet: Regular Addtl Attending Provider Instructions: Please make appointment follow-up with your regular PCP Pending Studies at Discharge: No Stand-Alone Forms: My [facility], Smoking Cessation Medications and DC Order Prescriptions: Continued metformin 500 mg tablet extended release 24hr 500 mg PO BID Qty: 200 3RF verapamil 180 mg tablet extended release 180 mg PO QAM Qty: 100 3RF doxycycline hyclate 50 mg capsule 50 mg PO QAM Qty: 90 3RF Rx Instructions: For Rosacea mecobalamin (vitamin B12) 1,000 mcg tablet,disintegrating 1,000 mcg sublingual QAM Rx Instructions: place tablet under tongue and allow to dissolve for at least30 secs before swallowing multivitamin tablet 1 tab PO QAM buspirone 5 mg tablet 5 mg PO BID allopurinol 300 mg tablet 300 mg PO QAM losartan-hydrochlorothiazide 50-12.5 mg tablet 1 tab PO QAM rosuvastatin 10 mg tablet 10 mg PO HS Discharge Orders: Discharge Order (Routine); Ordered 11/14/23 Ordered By: Danyelle Olivo Admission Data Admit Date/Time: 11/13/23 20:51 Attending Provider: Danyelle Olivo Admit Provider: Paulo Raymond Primary Care Provider: Taras Rivera Other Providers: Paulo Raymond; Sd Conte Coding Level of Care Code 57644 INP/OBS DISCH >30 MIN Diagnoses NSVT (nonsustained ventricular tachycardia) I47.29 PVCs (premature ventricular contractions) I49.3 Premature atrial complexes I49.1 Depression with anxiety F41.8 Enlarged prostate with lower urinary tract symptoms (LUTS) N40.1 Osteoarthritis of both knees M17.0 Hypertension I10 Hyperlipidemia E78.5 Diabetes type 2, controlled E11.9 Hypomagnesemia E83.42 Hypokalemia E87.6 History of atrial fibrillation Z86.79 Time Spent (min) 35
--- NOTE | 2023-11-16 14:20 | Electrocardiogram Report ---
Test Reason : Blood Pressure : / mmHG Vent. Rate : 065 BPM Atrial Rate : 065 BPM P-R Int : 162 ms QRS Dur : 086 ms QT Int : 376 ms P-R-T Axes : 054 -22 104 degrees QTc Int : 391 ms Sinus rhythm with marked sinus arrhythmia and pacs Nonspecific T wave abnormality Abnormal ECG When compared with ECG of 13-NOV-2023 14:49, (unconfirmed) No significant change Confirmed by Sd Conte ([id number]) on 11/16/2023 2:20:13 PM Referred By: Confirmed By:Sd Conte
== END 2023-11-14 16:34 | disposition home or self-care (01) ==
LOC: ED 14:59 → EDINP 14:59 → SUATTDRO 20:51 → 2E 23:39

== ENCOUNTER 2023-12-03 07:03 | Observation (INO) ==
--- NOTE | 2023-11-04 13:10 | PAT Medication Instructions ---
Medication Instructions Date of Service November 04, 2023 Home Medications Medication Instructions Recorded metformin 500 mg tablet,extended 500 mg PO BID #200 tabs 12/17/22 release 24hr (osmotic) verapamil 180 mg tablet,extended 180 mg PO QAM #100 tabs 01/08/23 release doxycycline hyclate 50 mg capsule 50 mg PO QAM #90 caps 10/06/23 multivitamin 1 tab PO QAM metformin 500 mg tablet,extended release 24hr (osmotic) 500 mg PO BID verapamil 180 mg tablet,extended release 180 mg PO QAM mecobalamin (vitamin B12) 1,000 mcg disintegrating tablet,sublingual 1,000 mcg sublingual QAM allopurinol 300 mg tablet 300 mg PO QAM buspirone 5 mg tablet 5 mg PO BID losartan 50 mg-hydrochlorothiazide 12.5 mg tablet 1 tab PO QAM rosuvastatin 10 mg tablet 10 mg PO HS doxycycline hyclate 50 mg capsule 50 mg PO QAM Continue as directed doxycycline hyclate 50 mg capsule 50 mg PO QAM DO NOT take the morning of surgery multivitamin 1 tab PO QAM metformin 500 mg tablet,extended release 24hr (osmotic) 500 mg PO BID mecobalamin (vitamin B12) 1,000 mcg disintegrating tablet,sublingual 1,000 mcg sublingual QAM losartan 50 mg-hydrochlorothiazide 12.5 mg tablet 1 tab PO QAM Take morning of surgery With a small sip of water, OTHERWISE NOTHING TO EAT OR DRINK AFTER MIDNIGHT: verapamil 180 mg tablet,extended release 180 mg PO QAM allopurinol 300 mg tablet 300 mg PO QAM buspirone 5 mg tablet 5 mg PO BID Take evening before surgery metformin 500 mg tablet,extended release 24hr (osmotic) 500 mg PO BID buspirone 5 mg tablet 5 mg PO BID rosuvastatin 10 mg tablet 10 mg PO HS Other Notes If you have any questions please call us at [phone] or [phone] or [phone] or [phone]
--- NOTE | 2023-11-13 14:36 | Anesthesiology Consultation ---
Date of Service November 13, 2023 Assessment & Plan (1) Encounter for pre-operative examination: awaiting: - OR cardiology pre-operative evaluation 11/23/23. - OR PCP pre-operative evaluation 11/25/23. Workload note sent to PCP that coags and type and screen still need ordered and if these can be done at PCP appt. Surgeon's office made aware. - confirmed 11/13/23 EKG. - discharge summary 11/14/23 [facility] [place]: "...PACs/PVCs/history of atrial fibrillation/hypertension/5 beat run NSVT-Patient has been asymptomatic, and EKGs reportedly in outpatient setting were noted to have atrial fibrillation, and patient has a pending outpatient appointment with [facility] cardiology on 11/23/2023...evaluated by ballet soloist who determined there was no need to make any changes to his current medications...Electrolyte disturbances- Hypokalemia: Potassium repleted. Hypomagnesemia: Magnesium repleted..." - Cardiac exam: Patient and his state that afib was detected at [facility] ortho visit and he was referred to cardiology-has appointment with OR cardiology 11/23/23. EKG was set-up and patient was initially in sinus rhythm and then went into irregularly irregular rhythm, rate controlled. Patient denied any symptoms in clinic, states he has been experiencing intermittent episodes of lightheadedness-denied correlation to positional changes-with several episodes of presyncope over the past few months. Typical policy for PAT is to refer new afib to ER for work-up/anticoagulation determination. Patient remained asymptomatic and concern was discussed with patient and his and they are agreeable to ER evaluation here at [facility] [place]. Patient was transported to ER via wheelchair. marleny Booth RN with [facility] ER was notified of above. Surgeon's office made aware. Chart Review Chart Review: Pending: Refer to Additional Notes / Consult section and Patient seen in Pre Admission Testing Teaching & Discussion Pre-Anesthesia Teaching/Discussion Notes: Instructed NPO after midnight before surgery, except medications with 15 cc of water. Medication instructions provided according to the PAT guidelines. History Surgery Operation Date: 12/03/23 07:00 Proposed Procedures p Left Total Knee Arthroplasty - Scott Lopez MD Height/Weight Height: 5 ft 7 in Weight: 77.111 kg Allergies Allergy/AdvReac Type Severity Reaction Status Date / Time lisinopril Allergy Unknown cough Verified 11/04/23 08:19 Medications Home Medications Medication Instructions Recorded Confirmed Last Taken multivitamin 1 tab PO QAM 01/24/19 11/13/23 09/08/23 metformin 500 mg tablet,extended 500 mg PO BID #200 tabs 12/17/22 11/13/23 09/08/23 release 24hr (osmotic) verapamil 180 mg tablet,extended 180 mg PO QAM #100 tabs 01/08/23 11/13/23 09/08/23 release mecobalamin (vitamin B12) 1,000 1,000 mcg sublingual QAM 01/15/23 11/13/23 05/24/23 mcg disintegrating tablet,sublingual allopurinol 300 mg tablet 300 mg PO QAM 05/15/23 11/13/23 09/08/23 buspirone 5 mg tablet 5 mg PO BID 05/15/23 11/13/23 09/08/23 losartan 50 mg-hydrochlorothiazide 1 tab PO QAM 05/15/23 11/13/23 09/08/23 12.5 mg tablet rosuvastatin 10 mg tablet 10 mg PO HS 05/15/23 11/13/23 09/08/23 doxycycline hyclate 50 mg capsule 50 mg PO QAM #90 caps 10/06/23 11/13/23 Unknown Past Medical History Medical History Anxiety Apnea, sleep says when lying on back will stop breathing sometimes. No hx sleep study. Chronic cough for past 12-13 yrs/testing done. Something sweet or hot will trigger it. No findings. Denies change to baseline. Diabetes type 2, controlled Fatty liver disease, nonalcoholic Gout hx History of atrial fibrillation History of colon polyps History of COVID-19 04/28/23 > home test > temp of 100.0, fatigue, all resolved History of kidney stones [place] (hard of hearing) Hyperlipidemia Hypertension controlled, stable per pt Osteoarthritis knees and bone spurs. Osteoarthritis of both knees Prostate nodule hx many years ago ? / hx elevated psa/since then re tested and normal - no known or current problems. Rosacea Patient denies h/o stroke, seizures, heart attack, heart failure, blood clots/DVTs or blood transfusions. Exercise / Class Metabolic Activity II 4-5 Yardwork/Stairs/Walk up hill (denies chest discomfort or shortness of breath with 1 FOS) Past Family History Family History Grandmother Family history of diabetes mellitus Mother Family hx of colon cancer Colorectal cancer Brother Myocardial infarction Denies family history of Ovarian cancer Prostate cancer Coronary heart disease Breast cancer Past Surgical History Surgical History History of colonoscopy History of esophagogastroduodenoscopy (EGD) History of left cataract surgery History of tonsillectomy and adenoidectomy History of tooth extraction Hx of right cataract extraction Past Anesthesia History No Hx of Anesthesia Complications and No Family Hx of Anesthesia Complications History of PONV No Hx of PONV and No Hx of Motion Sickness Social History Smoking Status: Former smoker Smoking cigarettes per day: QUIT 1972 Do You Dip or Chew Tobacco: No Smoking End Date: 1971 Hx Alcohol Use: No Hx Substance Use: No substance use type: does not use Review of Systems Patient denies chest pain, shortness of breath, dyspnea on exertion, reflux, fever, chills, cough, wheezing, or palpitations. Physical Exam Vital Signs Vitals BP 123/73 P 81 TEMP 98.1 SP02 97% on RA RESP 17 Physical Patient resting comfortably in chair in no acute distress, alert and oriented, responding appropriately throughout visit Full cervical extension range of motion without pain TMD 3.5 finger breadths Mallampati Score 2 Dentition: edentulous, full upper and lower dentures Lungs: normal respiratory effort. Good air movement, clear throughout to auscultation, no adventitious breath sounds Cardiac: regular rate and rhythm, no murmurs noted Carotid arteries: negative bruit bilat Lab Results Anesthesia Preop Results Results Anesthesia Widget: WBC 7.39 K/ul (4.8-10.8) 11/14/23 Hgb 12.2 g/dl (14.0-18.0) L 11/14/23 Hct 36.5 % (42.0-52.0) L 11/14/23 Plt 165 K/uL (130-400) 11/14/23 Na 139 mmol/L (136-145) 11/14/23 K 3.9 mmol/L (3.5-5.1) 11/14/23 Cl 106 mmol/L (98-107) 11/14/23 CO2 27 mmol/L (21-32) 11/14/23 BUN 27 mg/dl (6-23) H 11/14/23 Creat 1.06 mg/dl (0.6-1.4) 11/14/23 Glucose Level 121 mg/dl (70-99(Fasting)) H 11/14/23 PT 11.2 Seconds (9.0-12.0) 11/13/23 PTT 25 Seconds (21-31) 11/13/23 INR 1.0 (0.9-1.1) 11/13/23 Testing Chest X-Ray Date: 11/13/23 *1view* No acute process. Echocardiogram Date: 11/14/23 EF 55-60% No LV regional wall motion abnormalities Borderline cLVH No significant valvular pathology
--- NOTE | 2023-11-18 15:29 | History & Physical Report ---
Date of Service November 18, 2023 Assessment & Plan (1) Osteoarthritis of left knee: Plan: PRE-OP Diagnosis: Left knee osteoarthritis Planned Procedure: Left total knee arthroplasty Plan: Patient is scheduled to undergo this procedure at the [facility] with Dr. Lopez on , December 03, 2023. Risks and complications of the procedure such as: Infection, bleeding, pain, scarring, nerve blood vessel damage, weakness, wound problems, stiffness, incomplete relief of symptoms, hardware failure, hardware loosening, wear, fracture, tendon or ligament injury, blood clots, embolism, cardiac, stroke and were explained to the patient at his visit today and informed consent for the procedure was obtained. Patient also understands risks of proceeding with surgical intervention during the COVID-19 pandemic. Currently he is asymptomatic and states that he has not been in contact with anyone positive for the virus recently. We will need to obtain preoperative medical clearance from the patient's primary care provider. Patient has his appointment with Dr. Rivera on November 24. Patient is scheduled to meet with anesthesia at the hospital later this afternoon. While there she will obtain a CBC with differential, complete metabolic panel, PT/INR, blood type and screen, urinalysis, urine culture and sensitivity, EKG, hemoglobin A1c and a nasal culture for MRSA. During today's visit we reviewed the total knee packet. I provided the patient with paperwork to obtain obtaining a handicap placard for his vehicle. I provided him with information about lectures offered by [facility] in regards to joint replacement surgery. He states that he has a walker he will bring with him on the day of procedure. I recommended that he purchase a shower chair and raised toilet seat. We discussed discharge planning from the hospital. Patient states he will most likely do in-home physical therapy for the first 2 weeks before transitioning to outpatient physical therapy. I advised the patient that he will be provided with a prescription for narcotic pain medication for postoperative pain control. We will have him on aspirin twice daily for the first 30 days postoperatively for blood clot prevention. Patient will be scheduled for his 2-week postoperative follow-up visit with myself on December 14. Patient will need cardiac clearance due to undiagnosed atrial fibrillation found during today's cardiac exam. This chart was completed utilizing [employer] voice recognition software. Grammatical errors, random word insertions, pronoun errors, and in complete sentences are an occasional consequence of the system. Any questions or concerns about the content, text, or information contained within the body of this dictation should be addressed directly to the physician for clarification. History of Present Illness Chief Complaint: Left knee Pain Primary Care Provider: Taras Rievra MD History of Present Illness (including history relevant to procedure): This 78-year-old male presents to clinic today for his preoperative history and physi lalitha. Patient complains of approximately 10-year history of bilateral knee pain that has become progressively worse more so on the left knee than right. Patient states that he has used oral nonsteroidal agents, topical nonsteroidal agents, had corticosteroid injections which have only provided short-term relief. Patient states that at certain times of the knee candido and almost gives out on him. He states he currently is not taking any type of anti- inflammatory pain relieving agents. Patient has failed conservative management and is electing to proceed with surgical intervention at this time. Review Of Systems: A 12 point review of systems is performed is unremarkable except for those things stated in the HPI and past medical history. Past Medical History: Problems: Right knee pain Milia Seborrheic keratoses History of polyp of colon Hyperlipidemia Osteoarthritis Type 2 diabetes mellitus Inflamed seborrheic keratosis Gout High cholesterol HTN (hypertension) Rosacea Diabetes/depression Procedure History Procedure Procedure Date Comments Colonoscopy Bilateral cataract removal Allergies and Sensitivities: lisinopril(cough) Current Home Meds: (Last Updated 11/12 12:46) allopurinol 300 mg PO Daily doxycycline (doxycycline monohydrate 50 mg oral capsule) TAKE 1 CAPSULE BY MOUTH ONCE DAILY hydroCHLOROthiazide-losartan (hydroCHLOROthiazide-losartan 12.5 mg-100 mg oral tablet) 1 tab PO Daily metFORMIN (MetFORMIN (Eqv-Glucophage XR) 500 mg oral tablet, extended release) multivitamin 1 tab PO Daily rosuvastatin (rosuvastatin 10 mg oral tablet) 10 mg PO Daily verapamil (verapamil 180 mg/12 hours oral tablet, extended release) 180 mg PO qAM Initial Wt: 11/12 80.0 kg 176 lb Allergies Allergy/AdvReac Type Severity Reaction Status Date / Time lisinopril Allergy Unknown cough Verified 11/17/23 14:57 Home Medications Medication Instructions Recorded Confirmed Type multivitamin 1 tab PO QAM 01/24/19 11/17/23 History metformin 500 mg tablet,extended 500 mg PO BID #200 tabs 05/03/23 04/02/24 Rx release 24hr (osmotic) verapamil 180 mg tablet,extended 180 mg PO QAM #100 tabs 01/08/23 11/17/23 Rx release mecobalamin (vitamin B12) 1,000 1,000 mcg sublingual QAM 01/15/23 11/17/23 History mcg disintegrating tablet,sublingual allopurinol 300 mg tablet 300 mg PO QAM 05/15/23 11/17/23 History buspirone 5 mg tablet 5 mg PO BID 05/15/23 11/17/23 History losartan 50 mg-hydrochlorothiazide 1 tab PO QAM 05/15/23 11/17/23 History 12.5 mg tablet rosuvastatin 10 mg tablet 10 mg PO HS 05/15/23 11/17/23 History doxycycline hyclate 50 mg capsule 50 mg PO QAM #90 caps 10/06/23 11/17/23 Rx Past Med/Surg History Medical History History of atrial fibrillation Osteoarthritis of both knees KENAITZE (hard of hearing) Chronic cough for past 12-13 yrs/testing done. Something sweet or hot will trigger it. No findings. Denies change to baseline. Osteoarthritis knees and bone spurs. History of kidney stones Apnea, sleep says when lying on back will stop breathing sometimes. No hx sleep study. Anxiety History of colon polyps History of COVID-19 04/28/23 > home test > temp of 100.0, fatigue, all resolved Fatty liver disease, nonalcoholic Prostate nodule hx many years ago ? / hx elevated psa/since then re tested and normal - no known or current problems. Diabetes type 2, controlled Rosacea Gout hx Hypertension controlled, stable per pt Hyperlipidemia Surgical History Hx of right cataract extraction History of left cataract surgery History of tonsillectomy and adenoidectomy History of esophagogastroduodenoscopy (EGD) History of colonoscopy History of tooth extraction Family History Grandmother Family history of diabetes mellitus Mother Family hx of colon cancer Colorectal cancer Brother Myocardial infarction Denies family history of Ovarian cancer Prostate cancer Coronary heart disease Breast cancer Social History Smoking Status: Never smoker Tobacco Type: Cigarettes Age Started Using Tobacco: 18; packs per day: 2; Cigarettes Per Day: QUIT 1973; Second Hand Exposure: No; Do You Dip or Chew Tobacco: No; Hx Alcohol Use: No Hx Substance Use: No Preferred Language: Portuguese Communication Ability: Effective Visual Impairment: No Limitations Hearing Ability: Hard of Hearing Camp Boss Required: No Beliefs That Will Affect Care: None marital status: Current Living Situation: Spouse current occupational status: retired current occupation: retired from [employer] Feels Safe at Home: Yes Childhood Exposure to Second-Hand Smoke: Yes Diet: regular caffeine: Yes Dental Care, Regularly: No Physical Activity Frequency: Does not Exercise Seatbelt Use: always Sunscreen Use: No Assistive Devices: Denture - Upper, Denture - Lower and Glasses Review of Systems All systems reviewed & are unremarkable except as noted in Subjective Physical Exam Physical Exam: Physical Exam: (relevant to the procedure, including heart and lung evaluation) General: Alert and oriented x 3 with proper grooming and hygiene Eyes: Pupils are equal reactive to light with accommodation. Extraocular movements are intact Throat: Posterior oropharynx is clear with absence of edema, erythema or exudate. Dentition is appropriate. Cardiac: Irregularly irregular rate and rhythm with no murmurs or gallops appreciated. Lungs: Clear to auscultation throughout with no wheezing, rales or rhonchi Abdomen: Mildly obese, nondistended, nontender with NABS Extremities: Left knee: Range of motion is from about 10 degrees of extension to 96 degrees of flexion. He experiences medial and lateral joint line tenderness when the knee is palpated in the flexed position. Patient's patella is not mobile due to arthritic change within the patellofemoral joint. There is audible crepitation with passive range of motion. He has no laxity with varus or valgus stressing. AP drawer sign and Sera test are negative. Patient is neurovascularly intact in the left lower extremity. Neuro: Cranial nerves II through XII are intact no motor or sensory deficit Skin: Normal in appearance with no open skin areas or discharge Results & Data Diagnostic Findings Studies (relevant to the procedure): X-ray imaging: I reviewed 3 views of each knee and long leg alignment films which show anatomic varus on right, and varus mal alignment on left, tricompartmental osteophyte formation, and bilateral severe arthritis.
[~2023-12-03 07:03] MED LIST changes: -ALL300 PO; +BUPIVACAINE 0.5 % 5 MG/1 ML PF 10ML VIAL ONE; -HYDC25 PO; -METR0.754 EX; -MULT-164 PO; +ROPIV 0.5% 246mg, Ketorolac 30mg, EPINEPHrine 0.5mg in NSS INFIL SCH; +ROPIVACAINE 0.5% 5 MG/ML 30 ML VIAL ONE; -SIMV20TA2 PO; -VERA120T15 PO
[2023-12-03] MEDS ORDERED: LIDOCAINE 2% 2 ML VIAL/AMP(20MG/ML) INFIL ONE (07:46)
[2023-12-03] MEDS ORDERED: PROPOFOL IV EMULSION 10 MG/ML 20 ML VIAL IV ONE ×3 (07:46→10:04)
[2023-12-03] MEDS ORDERED: MIDAZOLAM HCL 1 MG/ML 2ML VIAL ONE (07:47)
[2023-12-03] MEDS: LR 60ML/HR IV SCH (07:56)
[2023-12-03] MEDS: LR 500ML BOLUS, THEN 15ML/HR IV SCH (07:56)
[2023-12-03] MEDS: Scopolamine 1 MG TDSY TD SCH (07:58)
[2023-12-03] MEDS: ACETAMINOPHEN 500 MG TAB PO SCH ×2 (08:00→14:33)
[2023-12-03] MEDS: traMADol HCL 50 MG TABLET PO SCH (08:02)
[2023-12-03] MEDS: CeleBREX 200 MG CAP PO SCH (08:02)
[2023-12-03] MEDS: FAMOTIDINE 20 MG TAB PO SCH (08:02)
--- NOTE | 2023-12-03 08:10 | History & Physical Bridge Note ---
Date of Service December 03, 2023 History & Physical Bridge Note I have examined the patient, reviewed the History & Physical and in the interval since the performance of the History & Physical I have noted the following changes of clinical significance: no changes noted
[2023-12-03] MEDS ORDERED: ONDANSETRON INJ 2 MG/ML 2 ML VIAL IV PRN ×2 (08:15→10:58)
[2023-12-03] MEDS ORDERED: fentaNYL citrate PF 100 MCG/2 ML VIAL IV PRN (08:15)
[2023-12-03] MEDS ORDERED: ePHEDrine sulfate 50 MG/ML AMP IV PRN (08:15)
[2023-12-03] MEDS ORDERED: ATROPINE SULFATE 0.1 MG/ML 10ML SYR IV PRN (08:15)
[2023-12-03] MEDS: TRANEXAMIC ACID 1,000 MG **IV Pre-op IV SCH (08:21)
[2023-12-03] MEDS: ceFAZolin 2000MG 2,000 MG/15 ML SYR IV SCH ×2 (09:40→17:36)
[2023-12-03] MEDS: ROPIVACAINE 0.5% HCL/PF 246 MG, Ketorolac (*for OR use only*) 30 MG, EPINEPHrine 30MG/3... INFIL SCH (09:41)
[2023-12-03] MEDS: ORTHO JOINT ANESTHETIC ONE (09:42)
[2023-12-03] MEDS ORDERED: PHENYLEPHRINE 100MCG/ML 10ML SYR IV ONE (10:17)
[2023-12-03] MEDS ORDERED: ePHEDrine sulfate 50 MG/5 ML SYR ONE (10:17)
[2023-12-03] MEDS: TRANEXAMIC ACID 1,000 MG **IV Intra-op IV SCH (10:25)
[2023-12-03] MEDS ORDERED: HYDROmorphone INJ 0.5 MG/0.5 ML SYR IV PRN (10:58)
[2023-12-03] MEDS ORDERED: NALOXONE HCL 0.4 MG/1 ML VIAL/CARP IV PRN (10:58)
[2023-12-03] MEDS ORDERED: MAGNESIUM HYDROXIDE SUSP 30 ML UDC PO PRN (10:58)
[2023-12-03] MEDS ORDERED: diphenhydrAMINE 50 MG/ML VIAL IV PRN (10:58)
[2023-12-03] MEDS ORDERED: bisacodyL 10 MG SUPP PR PRN (10:58)
[2023-12-03] MEDS ORDERED: ALUMINUM/MAGNESIUM SUSP 30 ML UDC PO PRN (10:58)
[2023-12-03] MEDS ORDERED: TAMSULOSIN HCL 0.4 MG CAP PO PRN (10:58)
[2023-12-03] MEDS ORDERED: METOCLOPRAMIDE HCL INJ 5 MG/ML 2 ML VIAL IV PRN (10:58)
--- NOTE | 2023-12-03 11:07 | Operative Report ---
Post Operative Report Pre & Post Diagnosis Operation Date: 12/03/23 08:50 Pre-Op Diagnosis: Left knee osteoarthritis. Post-Op Diagnosis: Left knee osteoarthritis. I identified the patient and participated in the time-out.: Yes Procedure Operation Date: 12/03/23 08:50 Actual Procedures p Left Total Knee Arthroplasty(Left) - Scott Lopez MD Surgeon Scott oLpez MD Metallurgical Analyst Viviana Toscano PAJoseph Estimated Blood Loss 50 Findings Consistent with Post-Op Diagnosis Specimens Left knee bone and soft tissue Description of Procedure I was present during the entire case assisting with positioning, prepping, draping, wound retraction, wound closure, dressing and immobilizer placement. No fellow present. Please see Dr. Lopez procedure note for specifics of the case. I attest to the content of the Intraoperative Record and any orders documented therein. Any exceptions are noted below.
--- NOTE | 2023-12-03 11:15 | Operative Report ---
Post Operative Report Pre & Post Diagnosis Operation Date: 12/03/23 08:50 Pre-Op Diagnosis: Left knee osteoarthritis. Post-Op Diagnosis: Left knee osteoarthritis. I identified the patient and participated in the time-out.: Yes Procedure Operation Date: 12/03/23 08:50 Actual Procedures p Left Total Knee Arthroplasty(Left) - Scott Lopez MD Surgeon Scott Lopez MD Steam Frame Operator Viviana Toscano PA-C Estimated Blood Loss 50 Findings Consistent with Post-Op Diagnosis Specimens left knee bone and soft tissue contents Anesthesia Type Spinal MAC Complications none Disposition Disposition: Recovery Room Indications 78-year-old male, with left knee arthritis and varus malalignment refractory to conservative management. X-rays demonstrate tricompartmental osteophyte formation, joint space narrowing, and subchondral sclerosis. I had a long discussion with him about the risks and benefits of surgery, alternatives to surgery, and expected outcomes. After reviewing all these he elected to proceed with surgery. All questions were answered. Informed consent was signed. Description of Procedure Patient was identified in the preoperative holding area where the surgical site, left knee, was marked. Spinal anesthetic was placed by anesthesia. Patient was brought back to the operating room, placed on the operating room table, and IV sedation was administered. A bump was placed underneath the ipsilateral hip. All bony prominences were padded. Perioperative antibiotics and tranexamic acid were administered. Exam under anesthesia was performed. This demonstrated varus malalignment of approximately 8 degrees. Range of motion arc was 15 to 90 degrees. Stable to varus and valgus stress test at 30 degrees. The surgical site was prepped and draped in the normal sterile fashion. Prior to incision a multidisciplinary timeout was called. All in the room were in agreement. We began by exsanguinating the limb with an Esmarch bandage. Tourniquet was inflated to 250 mmHg. A 16 cm long incision was made over the anterior aspect of the knee. I dissected through the subcutaneous tissues to the level of the fascia. Full-thickness flaps were raised above the fascia. A median parapatellar arthrotomy was made. Half the fat pad was excised. A medial release was performed with Bovie electrocautery on the proximal tibia. Synovitis in the knee and suprapatellar pouch was removed. The patella was then everted and held with 2 towel clips. The thickness of the patella was measured at 25 mm. Patellar resection was performed. Caliper showed the patella thickness now to be 15 mm. A size 41 trial was placed and had a great fit. The 3 drill holes were placed then the trial button was placed. The patellar thickness was now 25 mm which I was very happy with. The patellar trial was then removed, and the knee was flexed up. Retractors were placed to protect the MCL and LCL. Osteophytes were removed from the femoral condyles and intercondylar notch. The ACL was absent, however the PCL was still present and was excised. Intramedullary drill guide was drilled into the femur. Distal femoral cutting guide was placed set at 5 degrees of valgus to resect 11 mm off the distal femur. Distal femoral resection was made without difficulty. The tibia was then exposed. The lateral meniscus was sharply excised. The tibial cutting jig was positioned in line with the tibial shaft in the coronal plane and with 3 degrees of posterior slope in the sagittal plane to resect 5 mm off the more involved compartment. The jig was then pinned in position and the tibial cut was made. We then brought the knee into full extension. Lamina spreaders were placed. The medial meniscus was excised. The extension block was then placed for 5 mm thickness poly. This gave us full extension and excellent stability to varus and valgus stress. Next the extension block was removed, the knee was flexed up, collateral ligaments were protected, and the epicondylar axis and Whitesides line were marked out on the distal femoral cut. Femoral sizing guide was placed. External rotation was set at 3 degrees so that the posterior cut would be parallel with the epicondylar axis and perpendicular with Whitesides line. The patient sized to a size 6 femur. 2 pins were then placed through the jig into the distal femur. The jig was removed and the appropriately sized 4-in-1 cutting jig was placed over the pins, then fixated to the bone using threaded, headed pins. We confirmed that we would not notch the femur with our anterior cut. Our 4 cuts were then made. The cutting jig was removed. The flexion block was then placed with the knee held at 90 degrees. There was excellent stability to varus and valgus at 90 degrees with no gapping medially or laterall y. Next the box cutting jig was placed on the distal femur. The box cut was made and the femoral trial was impacted into position. Lug holes were drilled in the distal femur. We then reexposed the tibia. The tibia was sized to a 6 for a fixed-bearing component. The tibial tray with a 5 mm thickness polyethylene liner was placed on the cut tibial surface and the knee was brought through a full range of motion. There was excellent stability to varus valgus stress throughout a full range of motion, which was approximately 0-125 degrees. Bovie electrocautery was used to mohamud the tibia at the site where the tibial tray rested in full extension. We then flexed up the knee, removed the polyethylene liner, and pinned the tibial tray into position to match the cautery mohamud. The intramedullary drill followed by the keel punch were used to prepare the tibia. Next the trial components were removed. I then injected the posterior capsule and periosteum with the periarticular injection cocktail. The bone cuts were then irrigated and dried while the cement was mixed on the back table. The femoral component was cemented on first. Excess cement was removed. A lap sponge was placed over the femoral component for protection, then the tibia was subluxated anteriorly. The all polyethylene tibial component was then cemented in place. Again excess cement was removed. The knee was brought into full extension and held there until the cement cured. The patella was cemented and clamped. Dilute Betadine solution was then allowed to soak in the knee while the cement cured. Once the cement was fully cured, the knee was irrigated out, the tourniquet was let down and meticulous hemostasis was ensured. The knee was brought through a full range of motion. I was were very happy with the patella tracking and the stability. We then began to close. Interrupted 0 Vicryl suture was used to repair the patellar retinaculum in [id number] fashion. The quadriceps and patellar tendons were run with #1 Vicryl. The deep dermal layer was closed with interrupted 2-0 Vicryl. Dermabond and Zipline was used for the skin, followed by a Silverlon dressing. A compressive Bear wrap was placed and the knee was placed into a knee immobilizer. Patient's sedation was lifted and was transferred to recovery room in stable condition. Summary of implants: Depuy Attune Posterior Stabilized Cemented Femur, size 6 left Attune All-polyethylene tibial component, posterior stabilized 5 mm thickness, size 6 Attune patella medialized dome, size 41 2 batches of Palacos bone cement Postoperative course: Patient will be admitted to the floor for pain control and monitoring. Weightbearing as tolerated with a walker with no knee range of motion for 48 hours. Aspirin for DVT prophylaxis. I attest to the content of the Intraoperative Record and any orders documented therein. Any exceptions are noted below.
--- NOTE | 2023-12-03 12:09 | Anesthesiology Progress Note ---
Date of Service December 03, 2023 Anesthesia Post Procedure Vital Signs Vital Signs: Temp Pulse Resp BP Pulse Ox O2 Del Method O2 Flow Rate 12/03/23 12:05 45 L 18 95/51 L 97 Room Air 12/03/23 11:55 58 L 16 94/49 L 97 Room Air 12/03/23 11:45 51 L 18 95/49 L 96 Room Air 12/03/23 11:35 97.2 F L 46 L 19 92/49 L 94 Room Air 12/03/23 11:25 46 L 23 96/48 L 99 Oxymask 4 12/03/23 11:15 42 L 23 99/51 L 97 Oxymask 5 12/03/23 11:05 45 L 22 101/48 L 99 Oxymask 5 12/03/23 10:59 97.3 F L 42 L 23 105/55 L 98 Oxymask 5 12/03/23 07:40 97.7 F 70 18 130/73 96 Room Air Transfer of Care Handoff Completed per policy Notes Mental Status: alert / awake / arousable and participated in evaluation Patient Amnestic to Procedure: Yes Nausea / Vomiting: adequately controlled Pain: adequately controlled Airway Patency, RR, SpO2: stable & adequate BP & HR: stable & adequate Hydration State: stable & adequate Neuraxial Anesthesia: was administered and sensory block is resolving Anesthetic Complications: no major complications apparent and Pt Satisfied with anesthetic care
--- NOTE | 2023-12-03 12:10 | XRay Report ---
XR knee LT 1 or 2V routine HISTORY: 78 years-old Male Surgical Post Op left knee arthroplasty COMPARISON: 11/13/2023 TECHNIQUE: 2 views of the left knee FINDINGS: Total joint arthroplasty with patellar resurfacing. Anterior gauze material is noted with expected po stoperative soft tissue swelling and deep tissue air. Arterial calcifications. No acute fracture, dis location or unexpected opaque foreign body. IMPRESSION: Total joint arthroplasty with expected postoperative changes. ACT 112: Negative or not required by law. The above report was generated using voice recognition software. It may contain grammatical, syntax o r spelling errors. Electronically signed by: Javier Matthews M.D. 12/03/2023 12:08 PM
[2023-12-03] MEDS: SODIUM CHLORIDE 0.9% 1,000 ML IV SCH (12:55)
[2023-12-03] MEDS: KETOROLAC TROMETHAMINE 15 MG/ML VIAL IV SCH (12:57)
[2023-12-03] MEDS: metFORMIN HCL 500 MG TAB PO SCH (16:32)
[2023-12-03] MEDS: Scopolamine CHECK PATCH PLACEMENT SCH (16:33)
[2023-12-03] MEDS: DOCUSATE SODIUM 100 MG CAP PO SCH (20:22)
[2023-12-03] MEDS: ROSUVASTATIN CALCIUM 10 MG TAB PO SCH (20:22)
[2023-12-03] MEDS: SENNA 8.6 MG TAB PO SCH (20:22)
[2023-12-03] MEDS: busPIRone 5 MG TAB PO SCH (20:22)
[2023-12-03] MEDS ORDERED: CeleBREX 200 MG CAP PO SCH (21:00)
[2023-12-04 07:30] LABS: Hematocrit (blood only) 31.1 % (42.0-52.0); Hemoglobin 10.4 g/dl (14.0-18.0); Mean Corpuscular Hemoglobin 32.9 pg (25.0-34.0); Mean Corpuscular Hgb Conc 33.4 g/dL (32.0-36.0); Mean Corpuscular Volume 98.4 fL (80.0-100.0); Mean Platelet Volume 12.4 fL (9.4-12.4); Platelet Count 123 K/uL (130-400); RDW Coefficient of Variation 14.5 % (11.5-14.5); RDW Standard Deviation 51.7 fL (36.4-46.3); Red Blood Count 3.16 M/uL (4.70-6.10); White Blood Count 7.34 K/ul (4.8-10.8)
[2023-12-04 07:46] LABS: BUN Creatinine Ratio 16.9 (10-20); Calcium 8.7 mg/dl (8.6-10.3); Creatinine Clr Calc Pharmacy 46.7 ml/min; Est GFR (African American) 67.1 ml/min; Est GFR (Non-African American) 57.9 ml/min; Potassium 4.2 mmol/L (3.5-5.1)
[2023-12-04] MEDS: oxyCODONE HCL IR 5 MG TAB (IMMEDIATE RELEASE) PO PRN (08:25)
[2023-12-04] MEDS: CYANOCOBALAMIN (B-12) 500 MCG TABLET PO SCH (09:17)
[2023-12-04] MEDS: LOSARTAN/HCTZ 50/12.5MG TAB PO SCH (09:17)
[2023-12-04] MEDS: MULTIVITAMIN TAB PO SCH ×2 (09:17→09:18)
[2023-12-04] MEDS: ASPIRIN 81 MG ECTAB PO SCH (09:17)
[2023-12-04] MEDS: allopurinoL 300 MG TAB PO SCH (09:17)
[2023-12-04] MEDS: DOXYCYCLINE HYCLATE 50 MG CAP PO SCH (09:18)
[2023-12-04] MEDS: VERAPAMIL HCL 180 MG TABCR PO SCH (09:18)
--- NOTE | 2023-12-04 09:41 | Orthopedic Progress Note ---
Date of Service December 04, 2023 Assessment & Plan (1) S/P total knee arthroplasty: Plan: PT/OT Weightbearing as tolerated with walker and immobilizer for the first 48 hours Ice with easy wrap Pain control with p.o. medication DVT prophylaxis with JEROMY stockings and aspirin Keep Silverlon dressing in place Plan is to discharge home today with in-home physical therapy for the first 2 weeks postoperatively Follow-up at [facility] orthopedics as previously scheduled With questions contact our clinic at [phone] Admission and Anticipated Discharge Date Admission Date: December 03, 2023 Subjective This 78-year-old male is day 1 status post left total knee arthroplasty. States he is doing very well. He states his pain is well-controlled p.o. pain medication. He is hoping to discharge home today. Currently he denies chest pain, shortness of breath, fever, chills, sweats or numbness or tingling in his left lower extremity. Patient also denies nausea, vomiting, diarrhea or difficulty voiding. Review of Systems Review of Systems: All systems reviewed & are unremarkable except as noted in Subjective Physical Exam Physical Exam: Left knee: Outer dressing is removed. Silverlon is clean dry and intact left in place. Patient is able to easily perform an active straight leg raise test. His quad strength is 4+ out of 5. He is able to actively dorsi and plantarflex foot without issue. Active knee flexion is to 60 degrees and extension to 4 degrees. Patient's peripheral pulses are easily palpable. He is neurovascularly intact in the left lower extremity. Results & Data Vital Signs (Past 12 Hours) Vital Signs Temp Pulse Resp BP Pulse Ox O2 Del Method 12/04/23 09:16 67 121/73 12/04/23 07:25 36.4 C L 68 18 145/77 H 95 Room Air 12/04/23 03:45 36.6 C 69 16 143/90 H 96 Room Air 12/03/23 22:55 36.4 C L 51 L 16 110/66 96 Room Air Diagnostic Findings Laboratory Results WBC 7.34 K/ul (4.8-10.8) 12/04/23 06:55 RBC 3.16 M/uL (4.70-6.10) L 12/04/23 06:55 Hgb 10.4 g/dl (14.0-18.0) L 12/04/23 06:55 Hct 31.1 % (42.0-52.0) L 12/04/23 06:55 MCV 98.4 fL (80.0-100.0) 12/04/23 06:55 MCH 32.9 pg (25.0-34.0) 12/04/23 06:55 MCHC 33.4 g/dL (32.0-36.0) 12/04/23 06:55 RDW Std Deviation 51.7 fL (36.4-46.3) H 12/04/23 06:55 RDW Coeff of Sintia 14.5 % (11.5-14.5) 12/04/23 06:55 Plt Count 123 K/uL (130-400) L 12/04/23 06:55 MPV 12.4 fL (9.4-12.4) 12/04/23 06:55 Sodium 139 mmol/L (136-145) 12/04/23 06:55 Potassium 4.2 mmol/L (3.5-5.1) 12/04/23 06:55 Chloride 108 mmol/L (98-107) H 12/04/23 06:55 Carbon Dioxide 25 mmol/L (21-32) 12/04/23 06:55 Anion Gap 6 (3-11) 12/04/23 06:55 BUN 20 mg/dl (6-23) 12/04/23 06:55 Creatinine 1.18 mg/dl (0.6-1.4) 12/04/23 06:55 Est Cr Clr Drug Dosing 46.7 ml/min 12/04/23 06:55 Est GFR ( Amer) 67.1 ml/min 12/04/23 06:55 Est GFR (Non-Af Amer) 57.9 ml/min 12/04/23 06:55 BUN/Creatinine Ratio 16.9 (10-20) 12/04/23 06:55 Glucose 109 mg/dl (70-99(Fasting)) H 12/04/23 06:55 POC Glucose 117 mg/dl (70-99) H 12/03/23 10:59 Calcium 8.7 mg/dl (8.6-10.3) 12/04/23 06:55 Impressions Knee X-Ray 12/03/23 10:58 XR knee LT 1 or 2V routine HISTORY: 78 years-old Male Surgical Post Op left knee arthroplasty COMPARISON: 11/13/2023 TECHNIQUE: 2 views of the left knee FINDINGS: Total joint arthroplasty with patellar resurfacing. Anterior gauze material is noted with expected postoperative soft tissue swelling and deep tissue air. Arterial calcifications. No acute fracture, dislocation or unexpected opaque foreign body. IMPRESSION: Total joint arthroplasty with expected postoperative changes. ACT 112: Negative or not required by law. The above report was generated using voice recognition software. It may contain grammatical, syntax or spelling errors. Electronically signed by: Javier Matthews M.D. 12/03/2023 12:08 PM
--- NOTE | 2023-12-04 09:51 | Discharge Summary ---
Date of Service December 04, 2023 Admission HPI Per Admitting Provider History of Present Illness (including history relevant to procedure): This 78-year-old male presents to clinic today for his preoperative history and physical. Patient complains of approximately 10-year history of bilateral knee pain that has become progressively worse more so on the left knee than right. Patient states that he has used oral nonsteroidal agents, topical nonsteroidal agents, had corticosteroid injections which have only provided short-term relief. Patient states that at certain times of the knee candido and almost gives out on him. He states he currently is not taking any type of anti-inflam matory pain relieving agents. Patient has failed conservative management and is electing to proceed with surgical intervention at this time. Review Of Systems: A 12 point review of systems is performed is unremarkable except for those things stated in the HPI and past medical history. Past Medical History: Problems: Right knee pain Milia Seborrheic keratoses History of polyp of colon Hyperlipidemia Osteoarthritis Type 2 diabetes mellitus Inflamed seborrheic keratosis Gout High cholesterol HTN (hypertension) Rosacea Diabetes/depression Procedure History Procedure Procedure Date Comments Colonoscopy Bilateral cataract removal Allergies and Sensitivities: lisinopril(cough) Current Home Meds: (Last Updated 11/12 12:46) allopurinol 300 mg PO Daily doxycycline (doxycycline monohydrate 50 mg oral capsule) TAKE 1 CAPSULE BY MOUTH ONCE DAILY hydroCHLOROthiazide-losartan (hydroCHLOROthiazide-losartan 12.5 mg-100 mg oral tablet) 1 tab PO Daily metFORMIN (MetFORMIN (Eqv-Glucophage XR) 500 mg oral tablet, extended release) multivitamin 1 tab PO Daily rosuvastatin (rosuvastatin 10 mg oral tablet) 10 mg PO Daily verapamil (verapamil 180 mg/12 hours oral tablet, extended release) 180 mg PO qAM Initial Wt: 11/12 80.0 kg 176 lb Admission Exam Per Admitting Provider Physical Exam: (relevant to the procedure, including heart and lung evaluation) General: Alert and oriented x 3 with proper grooming and hygiene Eyes: Pupils are equal reactive to light with accommodation. Extraocular movements are intact Throat: Posterior oropharynx is clear with absence of edema, erythema or exudate. Dentition is appropriate. Cardiac: Irregularly irregular rate and rhythm with no murmurs or gallops appreciated. Lungs: Clear to auscultation throughout with no wheezing, rales or rhonchi Abdomen: Mildly obese, nondistended, nontender with NABS Extremities: Left knee: Range of motion is from about 10 degrees of extension to 96 degrees of flexion. He experiences medial and lateral joint line tenderness when the knee is palpated in the flexed position. Patient's patella is not mobile due to arthritic change within the patellofemoral joint. There is audible crepitation with passive range of motion. He has no laxity with varus or valgus stressing. AP drawer sign and Sera test are negative. Patient is neurovascularly intact in the left lower extremity. Neuro: Cranial nerves II through XII are intact no motor or sensory deficit Skin: Normal in appearance with no open skin areas or discharge Principal Diagnosis Left knee osteoarthritis Discharge Exam Left knee: Outer dressing is removed. Silverlon is clean dry and intact left in place. Patient is able to easily perform an active straight leg raise test. His quad strength is 4+ out of 5. He is able to actively dorsi and plantarflex foot without issue. Active knee flexion is to 60 degrees and extension to 40 degrees. Patient's peripheral pulses are easily palpable. He is neurovascularly intact in the left lower extremity. Discharge Data Allergies Allergy/AdvReac Type Severity Reaction Status Date / Time lisinopril Allergy Unknown cough Verified 12/03/23 07:33 Procedures Performed Operation Date: 12/03/23 08:50 Actual Procedures p Left Total Knee Arthroplasty(Left) - Scott Lopez MD Ordered Studies 12/03/23 05:00 US - OR guided needle placemen Routine Hospital Course (1) S/P total knee arthroplasty: Patient had an uneventful overnight stay following total knee arthroplasty. He is doing very well this morning. He hopes to be discharged home later this morning after he completes PT and OT. He states that he is planning on doing in-home physical therapy for the first 2 weeks postop. PT/OT Weightbearing as tolerated with walker and immobilizer for the first 48 hours Ice with easy wrap Pain control with p.o. medication DVT prophylaxis with JEROMY stockings and aspirin Keep Silverlon dressing in place Plan is to discharge home today with in-home physical therapy for the first 2 weeks postoperatively Follow-up at [facility] orthopedics as previously scheduled With questions contact our clinic at [phone] Total Time Total Time Spent Total Time Spent (In Minutes): 20 mins Discharge Plan Discharge Items Patient Disposition: Home - Home Health Services Reason For Visit: Left Knee Osteoarthritis Discharge Diagnosis: Left knee osteoarthritis Activity: As commented below Lifting: None Bathing: Keep incision dry Bathing Comment: May shower tomorrow Sexual Activity: Wait until after follow-up appointment Exercise/Sports: Wait until after follow-up appointment Driving/Machine Use: No driving until cleared by orthopedic designer Weightbearing: Left weightbearing Weightbearing Comment: as tolerated with walker and immobilizer x 48 hrs Non-emergency contact: Surgeon Call non-emergency contact if: you have any medication questions, your pain is not controlled, your temperature is above 101.5, your wound has increased drainage and your wound pain has increased Follow-up/Referrals: Taras Rivera MD [Primary Care Provider] - Diet: Heart Healthy Addtl Attending Provider Instructions: Post-operative Instructions Dear Patient and Family/Friends, Before you are discharged from the hospital, it is important to know what to expect when you get home after surgery. To that end, we have created this sheet of discharge instructions which covers many commonly asked questions. Make sure you go through this sheet in its entirety with your nurse before you are discharged. Please note that we will go over the specifics of your surgery and recovery when you return for your first post-operative visit. Sincerely, Dr. Lopez Medications 1. Oxycodone 5 mg: Take 1-2 tabs every 4-6 hours as needed for pain control. A prescription for this medication will be sent to your pharmacy. 2. Aspirin 81 mg: Take 1 tab twice daily for the first 30 days postoperatively for blood clot prevention. Please purchase this medication.. 3. Diclofenac sodium 75 mg: Take 1 tab twice daily for the first 30 days postoperatively for pain and inflammation relief a prescription for this medication will be sent to your pharmacy with 1 refill 4. Extra strength Tylenol 500 mg: Take 2 tabs every 6-8 hours as needed for additional pain relief. Please purchase this medication. Pain Expect to be in a fair amount of pain after surgery. Remember, our goal is not to eliminate your pain, but to make it tolerable. It is a good idea to stay ahead of your pain by taking the medications you were prescribed once you get home. Typically, the pain starts improving 3-7 days after surgery. You should start weaning off the narcotic pain medication (oxycodone, hydrocodone, hydromorphone, morphine) as soon as your pain improves. Please call our office if your pain is not adequately controlled. Ice Ice your operative site at least 5 times a day for 15-30 minutes at a time. Make sure you have a thin cloth between the ice or cooling unit and your skin to prevent rivera bite. This is especially important if you received a nerve block. Continue icing your operative site for the first 5-7 days after surgery, then as needed. Diet/Nausea/Vomiting Start by drinking clear liquids and eating crackers. If you can tolerate this, then you may resume your normal diet. If you feel nauseated or vomit, take Zofran/ondansetron (if prescribed). Please call our office if you have intractable nausea or vomiting, or, if after hours, you may go to the Emergency Room for help. Constipation Constipation is a common side effect of narcotic pain medication. If you have not had a bowel movement within 2 days after surgery, we recommend purchasing an over the counter laxative such as Milk of Magnesia, Dulcolax, or Miralax from a local pharmacy, and taking it as instructed. Call our clinic if any questions. Slings and Braces If you were placed in a sling or brace, it must be worn at all times, including sleep. You may remove your sling or brace for physical therapy, home exercises, and showering. The length of time you will be in your brace and range of motion restrictions depends on what surgery you had; these details will be reviewed at your first post-operative appointment. Nerve block The anesthesia team sometimes places a nerve block to help with post-operative pain control. This results in significant numbness and inability to move the extremity. The nerve block usually wears off in 8-12 hours, but sometimes can last up to 24 hours. Please call our office if you are still unable to move your extremity after 24 hours, unless you received a pain pump to take home. Nerve blocks typically wear off quickly, so start taking pain medication as soon as you start feeling soreness near your surgical site. Weight bearing and Range of Motion. Do not bear any weight through your operative extremity immediately after surgery. If you had upper extremity surgery, do not lift anything with that arm. If you are in a knee brace, keep it locked in place until your follow-up. We will discuss your weight bearing, range of motion, and lifting restrictions in detail at your first post-operative appointment. Continuous Passive Motion (CPM) Machine If you were prescribed a CPM machine, it will start after your first post- operative appointment, at which time we will give you instructions on the range of motion settings and duration of treatment Physical therapy You will be given a prescription for physical therapy or occupational therapy at your first post-operative appointment. Typically, patients start therapy within 1 week of surgery Wound care and showering We will inspect your wound at your first post-operative visit, and may do a dressing change at that time. Most patients will be in a water-proof dressing that is removed 14 days after surgery. It is normal to see some dried blood on the dressing. Do not remove your dressing, paper strips or sutures yourself unless you are given permission. Showering is allowed the day after surgery. Do not scrub or remove any dressings. The wound should not be submerged underwater (i.e. in a bathtub or pool) until 4 weeks after surgery JEROMY stockings If you were given white stockings, these are to be worn at all times except to shower (on both legs) for the first 2 weeks after surgery. Driving You may not drive while taking narcotic pain medication or while in a cast, splint, sling or brace. You, the patient, need to make the final determination about when you are safe to drive, however, the earliest you may consider driving after surgery is below: Hand/Wrist/Elbow Surgery: 3 days Shoulder Surgery: 2 weeks Hip,/Knee/Ankle Surgery: 4 weeks Fracture repair: 6 weeks Return to Work Your return to work depends on what surgery was done and what type of work you do. Please bring any paperwork your employer needs completed to your first post-operative visit. Also, bring a description of your job duties, as this helps us to understand what risks you may face at work. Travel Avoid long distance travel (greater than 1 hour) in airplanes and cars for the first 6 weeks after surgery. If you must travel, you need to have a Doppler ultrasound done before you travel to rule out a blood clot in your legs. Follow-up You should have a follow-up appointment already scheduled 1-2 days after surgery. If not, please contact our office to make this appointment before you leave the hospital. When to call the office It is normal to have swelling and bruising in the limb that was operated on. Th is will improve with time. It is also normal to have fevers for the first 2 days after surgery. Reasons you should call your doctor include: Uncontrolled pain; Nausea, vomiting, or constipation that does not improve with medication; Fevers over 101.5, chills, sweats; Drainage or bleeding from the wound; Foul odor; Spreading areas of redness; Any other concerns Pending Studies at Discharge: No Stand-Alone Forms: [facility] Medications and DC Order Prescriptions: New aspirin 81 mg Tablet,Delayed Release (Dr/Ec) 81 mg PO BID 30 Days Qty: 60 0RF acetaminophen [Tylenol Extra Strength] 500 mg Tablet 1,000 mg PO Q8 30 Days Qty: 180 0RF oxycodone 5 mg Tablet 5 - 10 mg PO Q4H MDD 6 tabs PRN (Reason: post op pain control) Qty: 28 0RF diclofenac sodium 75 mg tablet,delayed release (DR/EC) 75 mg PO BID 30 Days Qty: 60 1RF Continued metformin 500 mg tablet extended release 24hr 500 mg PO BID Qty: 200 3RF verapamil 180 mg tablet extended release 180 mg PO QAM Qty: 100 3RF doxycycline hyclate 50 mg capsule 50 mg PO QAM Qty: 90 3RF Rx Instructions: For Rosacea mecobalamin (vitamin B12) 1,000 mcg tablet,disintegrating 1,000 mcg sublingual QAM Rx Instructions: place tablet under tongue and allow to dissolve for at least30 secs before swallowing multivitamin tablet 1 tab PO QAM buspirone 5 mg tablet 5 mg PO BID allopurinol 300 mg tablet 300 mg PO QAM losartan-hydrochlorothiazide 50-12.5 mg tablet 1 tab PO QAM rosuvastatin 10 mg tablet 10 mg PO HS Admission Data Admit Date/Time: 12/03/23 10:58 Attending Provider: Scott Lopez Admit Provider: Scott Lopez Primary Care Provider: Taras Rivera Other Providers: [facility]; [facility]
== END 2023-12-04 10:41 | disposition home health service (06) ==
LOC: 3E 07:03 → ASU 07:03